=== PATIENT | female | born 1990 | race Caucasian/White ===

== ENCOUNTER 2018-02-06 01:14 | Inpatient (IN) | payer BC ==
[~2018-02-06] VITALS: Ht 165.1 cm; Wt 119.5 kg
[2018-02-06] MEDS ORDERED: LACTATED RINGER'S 1000ML 1,000 ML IV PRN (02:07)
[2018-02-06] MEDS ORDERED: PRENTAB26 PO (02:10)
[2018-02-06 02:11] VITALS: Ht 165.1 cm; Wt 119.5 kg
[2018-02-06 03:00] LABS: HEMATOCRIT 37.8 % (37-47); HEMOGLOBIN 12.6 g/dL (12.0-16.0); MEAN CELL VOLUME 84.9 fL (80-100); MEAN CORPUSCULAR HEMOGLOBIN 28.3 pg (25-34); MEAN CORPUSCULAR HGB CONC 33.3 g/dl (32-36); MEAN PLATELET VOLUME 11.1 fL (7.4-10.4); PLATELET COUNT 183 K/uL (130-400); RED CELL DISTRIBUTION WIDTH CV 14.3 % (11.5-14.5); RED CELL DISTRIBUTION WIDTH SD 44.6 fL (36.4-46.3); WHITE BLOOD COUNT 11.99 K/uL (4.8-10.8)
[2018-02-06] MEDS ORDERED: MISOPROSTOLTAB 50 MCG TAB PO ONE ×2 (10:00→14:45)
--- NOTE | 2018-02-06 10:03 | Progress Note ---
Progress Note Date of Service Feb 06, 2018. Progress Note Admit Note 27 F P0000 at 37.2 weeks with SROM last PM clear fluid not in labor. GBS is negative. Patient was ambulating during the night. No regular contractions. Cervix finger tip/50/-3/vertex. EFW 8.5 lbs. Will start Cytotec 50 mcg.
[2018-02-06] MEDS ORDERED: NURSING VERBAL MED ORDER ONE (14:30)
[2018-02-06] MEDS ORDERED: LACTATED RINGER'S 1000ML 500 ML IV PRN (20:19)
[2018-02-06] MEDS ORDERED: OXYTOCIN 30 UNITS/500ML NSS IV PRN (20:30)
[2018-02-06] MEDS: LACTATED RINGER'S 1000ML 1,000 ML IV SCH (20:56)
[2018-02-07] VITALS (15 sets, daily range): BP systolic 116–137; BP diastolic 72–82; PULSE 80–88; TEMP 36.5–37; O2SAT 95–100
[2018-02-07] MEDS: LACTATED RINGER'S 1000ML 1,000 ML IV SCH ×2 (04:26→08:01)
[2018-02-07] MEDS ORDERED: LACTATED RINGER'S 1000ML 1,000 ML IV SCH ×2 (06:58→09:54)
--- NOTE | 2018-02-07 07:01 | Progress Note ---
Progress Note Date of Service Feb 07, 2018. Progress Note Cervix unchanged at /-3. T Cat 1. Will set up for for arrest of progress of labor in latent phase.
--- NOTE | 2018-02-07 07:17 | HISTORY & PHYSICAL EXAMINATION ---
DATE OF ADMISSION: 02/07/2018 REASON FOR ADMISSION: Spontaneous rupture of membranes at term. HISTORY OF PRESENT ILLNESS: The patient is a 27-year-old female at 37 weeks and 3 days, who presents with spontaneous rupture of membranes last night. She progressed to 1 cm, 70%, -3 and has not had any further progress despite Pitocin. She has been ruptured greater than 24 hours. A decision to perform a was based on the fact that the patient has not made any progress, so arrest of progress in the latent phase. heart tones are category 1. GBS is negative. MEDS: PNV ALLERGIES: NKA SOCIAL HISTORY: non-smoker, no alcohol or drug use FAMILY HISTORY: non-contributory PHYSICAL EXAMINATION: HEENT: Within normal limits. LUNGS: Clear to auscultation. COR: Regular rate and rhythm. ABDOMEN: Soft, gravid. heart tone category 1. Estimated weight probably greater than 8 pounds. NEURO: grossly intact, AOX3 ASSESSMENT: Term with arrest of progress in labor. PLAN: Primary section, antibiotics preop. MTDD
[2018-02-07] MEDS ORDERED: CITRIC ACID/SODIUM CITRATE 15 ML UDC ONE (07:52)
[2018-02-07] MEDS ORDERED: CEFAZOLIN IV 3,000 MG in SYRINGE 0 ML IV SCH (08:00)
[2018-02-07] MEDS ORDERED: MoRPHine SULFATE PF 1 MG/ML 10 ML AMP/VIAL ONE (08:50)
[2018-02-07] MEDS ORDERED: FENTANYL CITRATE INJ 50 MCG/1 ML 2 ML VIAL ONE (08:50)
[2018-02-07] MEDS ORDERED: KETOROLAC TROMETHAMINE 30 MG/ML VIAL ONE (09:39)
[2018-02-07] MEDS ORDERED: PHENYLEPHRINE 100MCG/ML 5ML SYR ONE (09:39)
[2018-02-07] MEDS ORDERED: ONDANSETRON INJ 2 MG/ML 2 ML VIAL ONE (09:39)
[2018-02-07] MEDS ORDERED: OXYTOCIN INJ 10 UNITS/ML VIAL ONE (09:39)
--- NOTE | 2018-02-07 09:52 | [facility] Post Operative Brief Note ---
Immediate Operative Summary Operative Date Feb 07, 2018. Pre-Operative Diagnosis Arrest of progress latent phase of labor after spontaneous rupture of membranes at 37 weeks Post-Operative Diagnosis same with occiput posterior presentation of living male child Procedure(s) Performed Primary Low Transverse Caesarean Section Surgeon Dr. Waldo Olivares Sheet Catcher Surgeon(s) Dr. Peng Lazaro Estimated Blood Loss 500 Findings See Below LIVE MALE APGARS PENDING WEIGHT PENDING OCCIPUT TRANSVERSE POSITION Fluids (cc crystalloids) 1500 Ml Specimens a. placenta- exam b. cord blood specimen Drains None Flynn CLEAR Anesthesia Type Spinal Complication(s) none Disposition Accompanied Pt To Recover: yes Disposition: L&D
[2018-02-07] MEDS ORDERED: OXYTOCIN INJ 30 UNITS in LACTATED RINGER'S 1000ML 1,000 ML IV SCH (09:54)
[2018-02-07] MEDS ORDERED: LANOLIN OINT EXT PRN (10:00)
[2018-02-07] MEDS ORDERED: SENNA 8.6 MG TAB PO PRN (10:00)
[2018-02-07] MEDS ORDERED: SUPERCREAM 0.870 % 15GM JAR EXT PRN (10:00)
[2018-02-07] MEDS ORDERED: MAGNESIUM HYDROXIDE SUSP 30 ML UDC PO PRN (10:00)
[2018-02-07] MEDS ORDERED: DIPHTHERIA/TETANUS/PERTUSSIS 0.5 ML SYR/VIAL IM. ONE (10:00)
[2018-02-07] MEDS ORDERED: HYDROCORTISONE ACETATE 25 MG SUPP PR PRN (10:00)
[2018-02-07] MEDS ORDERED: MEASLES, MUMPS & RUBELLA VIRUS VIAL SQ. ONE (10:00)
[2018-02-07] MEDS ORDERED: BENZOCAINE 20% AER SPR 82.5 GM CAN EXT PRN (10:00)
[2018-02-07] MEDS ORDERED: LACTATED RINGER'S 1000ML 500 ML IV PRN (10:11)
[2018-02-07] MEDS ORDERED: SODIUM CHLORIDE 0.9% 1000ML 1,000 ML IV PRN (10:11)
[2018-02-07] MEDS ORDERED: NALOXONE HCL INJ 1 MG in SODIUM CHLORIDE 0.9% 1000ML 1,000 ML IV PRN (10:11)
[2018-02-07] MEDS ORDERED: NALOXONE HCL INJ 0.08 MG in SYRINGE 1.8 ML IV PRN (10:11)
[2018-02-07] MEDS ORDERED: PROMETHAZINE HCL INJ 6.25 MG in SODIUM CHLORIDE 0.9% 50ML 50 ML IV PRN (10:15)
[2018-02-07] MEDS ORDERED: MoRPHine SULFATE PF 1 MG/ML 10 ML AMP/VIAL EPI PRN (10:15)
[2018-02-07] MEDS ORDERED: EpHEDrine SULFATE INJ 50 MG/ML AMP IV PRN (10:15)
[2018-02-07] MEDS ORDERED: NALOXONE HCL 0.4 MG/1 ML VIAL/CARP IV PRN (10:15)
[2018-02-07] MEDS ORDERED: KETOROLAC TROMETHAMINE 30 MG/ML VIAL IV. PRN (10:15)
[2018-02-07] MEDS ORDERED: MoRPHine SULFATE 2 MG/ML CARP IV PRN (10:15)
[2018-02-07] MEDS ORDERED: DiphenhydrAMINE HCL 50 MG/ML VIAL IV PRN ×2 (10:15)
[2018-02-07] MEDS ORDERED: MEPERIDINE HCL 25 MG/ML CARP IV PRN (10:15)
[2018-02-07] MEDS ORDERED: NALBUPHINE HCL INJ 10 MG/ML AMP IV PRN (10:15)
[2018-02-07] MEDS ORDERED: NO NARCOTICS OR SEDATIVES SCH (10:15)
[2018-02-07] MEDS ORDERED: ONDANSETRON INJ 2 MG/ML 2 ML VIAL IV PRN (10:15)
--- NOTE | 2018-02-07 10:32 | OPERATIVE REPORT ---
DATE OF OPERATION: 02/07/2018 PREOPERATIVE DIAGNOSIS: Arrest of progress in latent phase with spontaneous rupture of membranes at 37 weeks. POSTOPERATIVE DIAGNOSIS: Same. PROCEDURE: Primary low transverse section. SURGEON: Dr. Olivares. SUPERVISOR PIPE FINISHING: Dr. Lazaro. ESTIMATED BLOOD LOSS: 500 mL. FINDINGS: Live male, Apgars 8 and 9, weight 6 pounds 15-1/2 ounces, occiput transverse position. FLUIDS: 1500 mL Norris clear. ANESTHESIA: Spinal anesthesia. COMPLICATIONS: None. The patient to recovery room in stable condition. CLINICAL HISTORY: The patient is a 27-year-old female, 37 weeks' , who presents with spontaneous rupture of membranes, not in active labor. The patient was given Cytotec twice and Pitocin, progressed to 1 cm without any further progress. A decision was made to do a primary section for latent phase arrest at 37 weeks with prolonged rupture of membranes. DESCRIPTION OF PROCEDURE: Under satisfactory spinal anesthesia, the patient was prepped and draped in the usual sterile fashion. Timeout was called prior to the start of the procedure. Antibiotics were given preop. A Pfannenstiel incision was made on the skin, entering into the abdominal cavity in successive layers without difficulty. Upon entering into the abdominal cavity, the Johann retractor was placed. A bladder flap was made in the usual manner, dissecting down the vesicouterine peritoneum over the bladder. A low segment transverse incision over the lower uterine segment was made. The incision was widened in the transverse plane using bandage scissors. The was then delivered as an occiput transverse lie and noted to be wedged in the pelvis. The cord was doubly clamped and cut. Baby was handed to doctor of medicine. Apgars were 8 and 9. weight 6 pounds 15-1/2 ounces. Cord blood was obtained. Placenta delivered spontaneously and intact. Uterus was then exteriorized. Ring forceps were then placed on both margins and in the inferior margin. Uterus was closed in double layer closure with 0 Vicryl suture in an interlocking fashion followed by an imbricating suture. The contents of the abdominal and pelvic cavity were then irrigated to clear. The Johann retractor was removed. The uterus was placed in the normal anatomical position. No active bleeding was noted. Lower uterine incision was inspected. The fascia was then reapproximated from both ends using 0 Vicryl suture in a continuous interlocking fashion. Subcuticular space was irrigated. Bleeders were cauterized. The subcuticular layer was closed with 2-0 plain suture followed by natalie for the skin. Clear urine was noted from the Norris, approximately 200 mL. EBL 500 mL. Final sponge, needle and instrument counts were found to be correct. Total fluids 1500 mL. The patient was placed supine on a stretcher and taken to recovery room in stable condition. I attest to the content of the Intraoperative Record and any orders documented therein. Any exception s are noted below.
--- NOTE | 2018-02-07 11:26 | Anesthesiology Progress Note ---
Anesthesia Post Op Note Date & Time Feb 07, 2018 at 11:26 Notes Mental Status: alert / awake / arousable, participated in evaluation Pt Amnestic to Procedure: No Nausea / Vomiting: adequately controlled Pain: adequately controlled Airway Patency, RR, SpO2: stable & adequate BP & HR: stable & adequate Hydration State: stable & adequate Neuraxial Anesthesia: was administered, sensory block is resolving Anesthetic Complications: no major complications apparent
[2018-02-07] MEDS: SIMETHICONE 80 MG CHEW PO SCH ×3 (12:53→19:26)
[2018-02-07] MEDS: DOCUSATE SODIUM 100 MG CAP PO SCH (19:26)
[2018-02-08] VITALS (7 sets, daily range): BP systolic 122–126; BP diastolic 63–78; PULSE 83–103; TEMP 36.7–36.9; O2SAT 97–100
[2018-02-08] MEDS ORDERED: DC INTRASPINAL MORPHINE SCH (02:00)
[2018-02-08] MEDS ORDERED: KETOROLAC TROMETHAMINE 30 MG/ML VIAL IV. PRN (02:00)
[2018-02-08] MEDS ORDERED: DiphenhydrAMINE HCL 50 MG/ML VIAL IV PRN (02:00)
[2018-02-08] MEDS ORDERED: OXYCODONE/ACETAMINOPHEN 5-325 TAB PO PRN (02:00)
[2018-02-08] MEDS ORDERED: ONDANSETRON INJ 2 MG/ML 2 ML VIAL IV PRN (02:00)
[2018-02-08] MEDS ORDERED: MEPERIDINE HCL 50 MG/ML CARP IV PRN ×2 (02:00)
[2018-02-08] MEDS: IBUPROFEN 600 MG TAB PO PRN ×5 (03:32→23:36)
[2018-02-08] MEDS: OXYCODONE/ACETAMINOPHEN 5-325 TAB PO PRN ×2 (03:32→16:59)
[2018-02-08 07:34] LABS: BASO % 0.1 %; BASO ABS # 0.01 K/uL (0-0.2); EOS % 0.7 %; EOS ABS # 0.08 K/uL (0-0.5); HEMATOCRIT 32.1 % (37-47); HEMOGLOBIN 10.9 g/dL (12.0-16.0); IG# 0.04 K/uL (0.00-0.02); LYMPH % 10.4 %; LYMPH ABS # 1.21 K/uL (1.2-3.4); MEAN CELL VOLUME 85.4 fL (80-100); MEAN PLATELET VOLUME 10.2 fL (7.4-10.4); MONO % 7.4 %; MONO ABS # 0.86 K/uL (0.11-0.59); NEUT % 81.1 %; NEUT ABS # 9.48 K/uL (1.4-6.5); PLATELET COUNT 147 K/uL (130-400); RED CELL DISTRIBUTION WIDTH SD 46.5 fL (36.4-46.3); WHITE BLOOD COUNT 11.68 K/uL (4.8-10.8)
[2018-02-08] MEDS: DOCUSATE SODIUM 100 MG CAP PO SCH ×2 (07:44→20:00)
[2018-02-08] MEDS: SIMETHICONE 80 MG CHEW PO SCH ×5 (07:44→23:35)
[2018-02-08] MEDS: PRENATAL VITAMIN TAB PO SCH (07:44)
--- NOTE | 2018-02-08 08:46 | Surgery Progress Note ---
Surgery Progress Note Date of Service Feb 08, 2018. Subjective Post OP Day: 1 + feeling well, + ambulating, + flatus, + pain controlled, + diet Objective Vital Signs: Date Time Temp Pulse Resp B/P (MAP) Pulse Ox O2 Delivery O2 Flow Rate FiO2 02/08/18 07:40 36.8 83 18 122/63 (82) Room Air 02/08/18 03:35 36.7 103 20 124/71 (88) 99 Room Air 02/08/18 02:00 20 99 02/08/18 01:00 18 98 02/08/18 00:00 18 100 02/07/18 23:40 36.8 88 20 116/74 (88) 98 Room Air 02/07/18 23:40 20 98 02/07/18 23:40 98 Room Air 02/07/18 23:00 18 99 02/07/18 22:00 16 99 02/07/18 21:00 16 100 02/07/18 20:00 18 100 02/07/18 19:30 18 100 02/07/18 19:30 37.0 86 18 122/81 (95) 100 Room Air 02/07/18 19:00 18 100 02/07/18 18:00 18 99 02/07/18 17:00 18 99 02/07/18 16:00 18 100 02/07/18 16:00 100 Room Air 02/07/18 16:00 36.7 85 16 137/82 (100) 100 Room Air 02/07/18 15:00 18 100 02/07/18 14:00 18 100 02/07/18 13:40 36.5 80 18 117/79 (92) 95 Room Air 02/07/18 13:00 16 98 02/07/18 12:40 100 Room Air 02/07/18 12:40 100 Room Air 02/07/18 12:40 80 16 125/72 (89) 98 Room Air Abdomen: non tender, non distended, soft Incision(s): clean, dry, intact Extremities: non-tender, normal inspection, no pedal edema Laboratory Results: Results Past 24 Hours Test 02/08/18 07:04 Range/Units White Blood Count 11.68 4.8-10.8 K/uL Red Blood Count 3.76 4.2-5.4 M/uL Hemoglobin 10.9 12.0-16.0 g/dL Hematocrit 32.1 37-47 % Mean Corpuscular Volume 85.4 80-100 fL Mean Corpuscular Hemoglobin 29.0 25-34 pg Mean Corpuscular Hemoglobin Concent 34.0 32-36 g/dl Platelet Count 147 130-400 K/uL Mean Platelet Volume 10.2 7.4-10.4 fL Neutrophils (%) (Auto) 81.1 % Lymphocytes (%) (Auto) 10.4 % Monocytes (%) (Auto) 7.4 % Eosinophils (%) (Auto) 0.7 % Basophils (%) (Auto) 0.1 % Neutrophils # (Auto) 9.48 1.4-6.5 K/uL Lymphocytes # (Auto) 1.21 1.2-3.4 K/uL Monocytes # (Auto) 0.86 0.11-0.59 K/uL Eosinophils # (Auto) 0.08 0-0.5 K/uL Basophils # (Auto) 0.01 0-0.2 K/uL RDW Standard Deviation 46.5 36.4-46.3 fL RDW Coefficient of Variation 15.0 11.5-14.5 % Immature Granulocyte % (Auto) 0.3 % Immature Granulocyte # (Auto) 0.04 0.00-0.02 K/uL Assessment & Plan regular diet POD#1 advance care and diet
[2018-02-08] MEDS ORDERED: BISACODYL 5 MG TABEC PO ONE (22:00)
[2018-02-09] MEDS: IBUPROFEN 600 MG TAB PO PRN ×2 (04:26→08:29)
[2018-02-09] MEDS: PRENATAL VITAMIN TAB PO SCH (08:28)
[2018-02-09] MEDS: DOCUSATE SODIUM 100 MG CAP PO SCH (08:29)
[2018-02-09] MEDS: SIMETHICONE 80 MG CHEW PO SCH (08:29)
[2018-02-09 08:40] VITALS: BP 129/86; PULSE 104; TEMP 36.9; O2SAT 98
--- NOTE | 2018-02-09 09:09 | Surgery Progress Note ---
Surgery Progress Note Date of Service Feb 09, 2018. Subjective Post OP Day: 2 + feeling well, + ambulating, + bowel movement, + flatus, + pain controlled, No complaints, No chest pain, No SOB, No using [employer], No nausea, No vomiting, No diet (Tolerating Po food and meds) Objective Vital Signs: Date Time Temp Pulse Resp B/P (MAP) Pulse Ox O2 Delivery O2 Flow Rate FiO2 02/08/18 23:40 97 Room Air 02/08/18 23:40 36.8 100 18 126/78 (94) 97 Room Air 02/08/18 17:00 36.9 93 18 123/78 (93) Room Air 02/08/18 17:00 98 Room Air General Appearance: WD/WN, no apparent distress Head: normocephalic, atraumatic Neck: supple, no adenopathy, thyroid normal, no JVD, no carotid bruits, trachea midline Respiratory/Chest: chest non-tender, lungs clear, normal breath sounds, no respiratory distress, no accessory muscle use Cardiovascular: regular rate, rhythm, no edema, no gallop, no JVD, no murmur Abdomen: normal bowel sounds, non tender, non distended, soft, no organomegaly , no pulsatile mass Incision(s): clean, dry, intact, no erythema, no drainage Extremities: normal range of motion, non-tender, normal inspection, no pedal edema, no calf tenderness, normal capillary refill, pelvis stable Assessment & Plan c/sec Day #3 pt doing well pt wishes to go home D/c with instructions
[2018-02-09] MEDS ORDERED: MTR600X PO (09:10)
[2018-02-09] MEDS ORDERED: OXYC-57 PO (09:10)
--- NOTE | 2018-02-09 09:10 | Discharge Instructions ---
Discharge Instructions Date of Service Feb 09, 2018. Admission Reason for Admission: LABOR Discharge Discharge Diagnosis / Problem: postop Discharge Goals Goal(s): Routine recovery after Activity Recommendations Activity Limitations: as noted below ACTIVITY RECOMMENDATIONS: * Gradual return to full activity over the next 2-3 weeks. * No lifting - nothing heavier than baby over the next 2-3 weeks. * Do not engage in vigorous exercise, sexual activity or sports until cleared by your physician. * Do not drive or operate any motorized equipment until cleared by your physician. * You may shower/bathe daily. BREAST CARE: If you are not breast feeding: * Wear a supportive bra 24 hours a day for one to two weeks. * Avoid stimulating your breasts and nipples as much as possible during the first few weeks after delivery. * When taking a shower, have the warm water hit your back, not breasts. * When your breasts feel full, apply ice packs. Usually three to four times a day helps ease the discomfort. * Take a mild pain medication (Tylenol/Motrin) when you are uncomfortable. If breast feeding: * Use breast milk to lubricate nipples. Lansinoh cream may be used for sore nipples. You do not need to remove cream prior to breast feeding. If using a different brand of cream, check the label for directions regarding removal of cream prior to nursing. * Wear a supportive bra. * If having problems with breasts or breast feeding, call a client experience consultant or your health care provider. OVER THE COUNTER MEDICATION: * For discomfort or pain, you may use Acetaminophen (Tylenol), Ibuprofen (Advil ), or Naproxen (Aleve) following the package directions. * For constipation you may use Colace following the package directions. SPECIAL CARE INSTRUCTIONS: When you are discharged from the hospital, it is important for you to follow the instructions listed below: * During the first week at home, you should be able to care for yourself and your baby. In addition, the usual light household activities are encouraged. * Limit your activities to the way you feel. Do not try to clean the house or move furniture. Be sensible. * If you actively engage in sports and have done so up until the time of your delivery, you may resume these activities as soon as you feel able. This may take up to one month or even longer. Use good judgment. * Continue to take your vitamins for at least six weeks after the of your baby. * Your diet need not be limited unless you were on a special diet before your delivery. Breast-feeding mothers need around 2500 calories per day and at least 64-80 ounces of fluid per day (8 to 10 glasses). * You should eat foods from the four major food groups. Crash diets or fad diets are to be avoided. Eating lean meats, fresh fruits and vegetables, low-fat dairy products, high fiber foods and a regular exercise program, will help you get back to your pre- weight without putting your health at risk. * Constipation is sometimes a problem after delivery. Take a mild laxative as needed. If breast feeding, Milk of Magnesia is acceptable to use. You may use a suppository or Fleets enema if no episiotomy. * A daily shower or tub bath is suggested. Be sure to thoroughly and gently dry the perineum. * A bloody vaginal discharge will usually continue until around four weeks post . A small amount of bleeding may continue for as long as six weeks. Vaginal discharge changes from the bright red bleeding after delivery to pink then brownish and finally yellowish-pink before becoming white and disappearing. * Bleeding may increase with activity. Your first period may come in 4-8 weeks. If you are breast feeding, your period may be delayed even longer. * [place] (sex) can begin whenever both you and your partner feel comfortable and do not have any form of genital infection. It is recommended that you wait at least six weeks for internal and external healing to occur. If you have questions, please talk to your health care practitioner. A condom should be used to prevent infection and . * Foreplay, gentle intercourse and lubrication is very important the first several times to prevent pain. A water-based lubricant such as K-Y jelly or Astroglide may be used. * Tampons and/or Douching should be avoided until after six weeks check-up. * If you have RH negative blood and your baby is RH positive, you will receive RHOGAM by injection prior to discharge. The nurse will give you a card to keep with you that has the date and place that you received RHOGAM after delivery. * During your care, you had a Rubella screen done to check for the presence of rubella antibodies in your blood. If your test was negative, you will receive a Rubella vaccine prior to discharge. This vaccine may cause a fever, soreness at the injection site and flu-like symptoms. If these symptoms persist, notify your health care practitioner. is not advised for three months after a Rubella vaccine. * Verbalizes understanding of car seat law as reviewed with patient nursing. * Car Seat hand-out given and reviewed with patient by nursing. * Shaken baby information reviewed with patient by nursing. Call you doctor if: * Heavy bleeding (saturating several pads an hour) or passing clots the size of your fist. * A fever >101 degrees F (38.3 degrees C) on two occasions four hours apart and /or chills. * Unusual pain in the pelvic or vaginal areas. Pain should improve each day . * Call the doctor for any increased redness, drainage or swelling around the incision and any pain unrelieved by prescribed pain medication. * Any signs or symptoms of phlebitis (possible blood clots forming in the veins ): leg pain, warm, red or swollen area on leg. * "Baby Blues" lasting longer than two weeks. If you have any questions or concerns, call your health care practitioner at . FOLLOW-UP VISIT: * Incision check (staple removal) in 1 week. Please call doctor's office at to set up appointment. * Please call the office at to schedule a 6 week examination. It is important you keep this appointment. * It is important for you to make arrangements for either yearly or twice yearly check-ups thereafter. . Current Hospital Diet Patient's current hospital diet: Regular OB Diet Discharge Diet Recommended Diet: Regular Diet Procedures Procedures Performed: Primary Low Transverse Caesarean Section Pending Studies Studies pending at discharge: no Medical Emergencies . Who to Call and When: Medical Emergencies: If at any time you feel your situation is an emergency, please call [phone] immediately. . Non-Emergent Contact Non-Emergency issues call your: Specialist . . "Provider Documentation" section prepared by Enrique Briggs. .
[2018-02-09] MEDS ORDERED: BISACODYL 10 MG SUPP PR PRN (10:00)
[2018-02-09 12:28] VITALS: BP_DIAS 86; PULSE 104; TEMP 36.9
== END 2018-02-09 12:30 | disposition home or self-care (01) | DRG 766 ==
LOC: C.LD 01:14 → C.OPB 01:14 → C.LD 02:09 → C.OPB 02:12 → C.OBG 02-07 12:52
PROVIDERS: ADMIT Obstetrics & Gynecology; ATTEND Obstetrics & Gynecology
PROC: 10D00Z1 Extraction of Products of Conception, Low, Open Approach (ICD-10-PCS; principal; 2018-02-07 07:37)
DX: O62.0 Primary inadequate contractions (principal); O42.12 Full-term premature rupture of membranes, onset of labor more than 24 hours following rupture; Z3A.37 37 weeks gestation of pregnancy; Z37.0 Single live birth

== ENCOUNTER 2021-05-19 14:46 | Inpatient (IN) ==
[2021-05-19] MEDS: LACTATED RINGER'S 1,000 ML IV PRN ×2 (15:15→16:52)
[2021-05-19] MEDS ORDERED: OXYTOCIN 30 UNITS/500 ML BAG IV PRN ×2 (15:30→20:35)
[2021-05-19 15:58] LABS: Hematocrit (blood only) 38.5 % (37-47); Hemoglobin 12.8 g/dL (12.0-16.0); Mean Corpuscular Hemoglobin 29.2 pg (25-34); Mean Corpuscular Hgb Conc 33.2 g/dL (32-36); Mean Corpuscular Volume 87.9 fL (80-100); Mean Platelet Volume 10.9 fL (7.4-10.4); Platelet Count 183 K/uL (130-400); RDW Coefficient of Variation 14.2 % (11.5-14.5); RDW Standard Deviation 46.2 fL (36.4-46.3); Red Blood Count 4.38 M/uL (4.2-5.4); White Blood Count 9.34 K/uL (4.8-10.8)
[2021-05-19] MEDS ORDERED: BUPIVACAINE 0.25% 30 ML VIAL ONE (16:03)
[2021-05-19] MEDS ORDERED: SODIUM CHLORIDE 0.9% INJ 10 ML VIAL ONE (16:03)
[2021-05-19] MEDS ORDERED: fentaNYL citrate 100 MCG/2 ML VIAL ONE (16:03)
[2021-05-19] MEDS ORDERED: ePHEDrine sulfate 50 MG/ML AMP ONE (16:03)
[2021-05-19] MEDS ORDERED: fentaNYL 2MCG/ML ROPIVACAINE 1.25MG/ML 100 ML BAG EPI ONE (16:04)
[2021-05-19] MEDS ORDERED: NALOXONE HCL 0.4 MG/1 ML VIAL/CARP IV PRN (16:06)
[2021-05-19] MEDS ORDERED: fentaNYL 2MCG/ML ROPIVACAINE 1.25MG/ML 100 ML BAG EPI PRN (16:06)
[2021-05-19] MEDS ORDERED: ONDANSETRON INJ 2 MG/ML 2 ML VIAL IV PRN (16:06)
[2021-05-19] MEDS ORDERED: NALOXONE HCL 1 MG in SODIUM CHLORIDE 0.9% 1000ML 1,000 ML IV PRN (16:06)
[2021-05-19] MEDS ORDERED: NALBUPHINE HCL INJ 10 MG/ML AMP IV PRN (16:06)
[2021-05-19] MEDS ORDERED: ePHEDrine sulfate 50 MG/ML AMP IV PRN (16:06)
[2021-05-19] MEDS ORDERED: diphenhydrAMINE 50 MG/ML VIAL IV PRN (16:06)
--- NOTE | 2021-05-19 16:09 | Anesthesiology Consultation ---
Date of Service May 19, 2021 Assessment & Plan (1) Encounter for pre-operative examination: Chart Review Chart Review: Patient NOT seen in Pre Admission Testing and Acceptable Risk for Labor Epidural Consults Requested none History Height/Weight Height: 5 ft 6 in Weight: 122.924 kg Allergies Allergy/AdvReac Type Severity Reaction Status Date / Time No Known Allergies Allergy Verified 05/19/21 15:41 Medications Home Medications Medication Instructions Recorded Confirmed Last Taken escitalopram oxalate 20 mg tablet 20 mg PO DAILY 05/18/21 05/19/21 05/17/21 (Lexapro) vits no.124-ferrous fum 1 tab PO DAILY 05/18/21 05/19/21 05/17/21 27 mg iron-folic acid 800 mcg tablet ( Vitamin) Active Medications Generic Name Dose Route Start Last Admin Trade Name Freq PRN Reason Stop Dose Admin Lactated Ringer's 1,000 mls @ 125 mls/hr 05/19/21 15:30 05/19/21 16:32 Lr IV 05/21/21 15:29 999 mls/hr .Q8H PRN Infusion L&D Protocol Protocol Past Medical History Medical History Anxiety Depression Obesity (BMI 35.0-39.9 without comorbidity) Exercise / Class Metabolic Activity II 4-5 Yardwork/Stairs/Walk up hill Past Surgical History Surgical History H/O section Past Anesthesia History No Hx of Anesthesia Complications and No Family Hx of Anesthesia Complications History of PONV No Hx of PONV and No Hx of Motion Sickness Social History Smoking Status: Never smoker Do You Dip or Chew Tobacco: No Hx Alcohol Use: No Hx Substance Use: No substance use type: does not use Physical Exam Vital Signs Last Vital Signs Temp 36.6 C 05/19/21 14:59 Pulse 85 05/19/21 16:38 Resp 20 05/19/21 14:59 BP 144/84 H 05/19/21 14:59 Pulse Ox 100 05/19/21 16:38 Testing Laboratory Results 05/19/21 15:47
--- NOTE | 2021-05-19 16:44 | Ultrasound Report ---
US OB limited CLINICAL HISTORY: size >>dates please do estimated weight COMPARISON STUDY: None. FINDINGS: Transabdominal scanning of the fetus was performed with procurement representative images submitted. A focal anatomic survey was not performed. The fetus is in a cephalic position with a heart rate of 151 BPM. Limited images suggests oligohydramnios. The curative ultrasound age based on the biparie sarah diameter, head circumference, abdominal circumference, and femur length is approximately 38 weeks and 4 days +/- 1 week. Estimated weight is 8 pounds and 8 ounces +/- 1 pound 4 ounces. IMPRESSION: 1. A single viable 38 week and 4 day intrauterine gestation with a heart rate of 151 BPM.. 2. Estimated weight is 8 pounds and 8 ounces +/- 1 pound 4 ounces. 3. Limited images suggest the possibility of oligohydramnios. ACT 112: Negative or not required by law. Electronically signed by: Shai Pope M.D. 05/19/2021 4:43 PM
--- NOTE | 2021-05-19 21:42 | Progress Note ---
Date of Service May 19, 2021 Assessment & Plan Admission and Anticipated Discharge Date Admission Date: May 19, 2021 Subjective Pt doing well VE: 9/100/-1 AROM : Clear fluid Ctx; Minimal Pitocin augmentation scalp placed Results & Data ([facility]) Vital Signs (Past 12 Hours) Vital Signs Temp Pulse Resp BP Pulse Ox 05/19/21 21:35 67 121/67 05/19/21 21:33 68 99 05/19/21 21:28 71 99 05/19/21 21:23 79 97 05/19/21 21:20 69 125/71 05/19/21 21:18 76 99 05/19/21 21:13 73 98 05/19/21 21:08 87 99 05/19/21 21:05 74 131/76 05/19/21 21:03 76 99 05/19/21 21:00 18 05/19/21 20:58 71 98 05/19/21 20:53 71 99 05/19/21 20:50 73 123/69 05/19/21 20:48 71 100 05/19/21 20:43 69 98 05/19/21 20:38 68 99 05/19/21 20:35 71 122/72 05/19/21 20:33 69 99 05/19/21 20:30 18 05/19/21 20:28 74 99 05/19/21 20:23 70 99 05/19/21 20:20 73 119/68 05/19/21 20:18 71 99 05/19/21 20:13 74 99 05/19/21 20:08 73 98 05/19/21 20:05 82 118/69 05/19/21 20:03 75 98 05/19/21 19:58 72 98 05/19/21 19:53 73 98 05/19/21 19:50 78 125/72 05/19/21 19:48 79 99 05/19/21 19:43 75 99 05/19/21 19:38 72 99 05/19/21 19:35 71 142/65 H 05/19/21 19:33 75 98 05/19/21 19:30 18 05/19/21 19:28 78 99 05/19/21 19:23 73 99 05/19/21 19:21 75 145/87 H 05/19/21 19:18 75 98 05/19/21 19:15 37.1 C 18 05/19/21 19:13 77 98 05/19/21 19:08 86 97 05/19/21 19:06 83 133/87 05/19/21 19:03 77 99 05/19/21 18:58 75 99 05/19/21 18:53 77 99 05/19/21 18:50 73 130/73 05/19/21 18:48 73 99 05/19/21 18:43 74 98 05/19/21 18:38 76 100 05/19/21 18:36 74 129/59 L 05/19/21 18:33 78 99 05/19/21 18:28 82 99 05/19/21 18:23 88 157/65 H 99 05/19/21 18:18 77 98 05/19/21 18:13 76 98 05/19/21 18:08 76 99 05/19/21 18:07 78 114/55 L 05/19/21 18:03 76 97 05/19/21 17:58 79 97 05/19/21 17:53 82 98 05/19/21 17:50 80 106/55 L 05/19/21 17:48 79 98 05/19/21 17:43 75 99 05/19/21 17:38 88 98 05/19/21 17:33 82 98 05/19/21 17:31 82 16 109/57 L 05/19/21 17:28 86 98 05/19/21 17:26 77 110/52 L 05/19/21 17:24 88 91 05/19/21 17:23 82 98 05/19/21 17:20 80 119/58 L 05/19/21 17:18 87 99 05/19/21 17:15 77 127/67 05/19/21 17:13 73 98 05/19/21 17:10 78 114/55 L 05/19/21 17:08 84 97 05/19/21 17:05 76 16 108/59 L 05/19/21 17:03 77 98 05/19/21 17:00 79 109/53 L 05/19/21 16:58 78 98 05/19/21 16:54 77 121/59 L 05/19/21 16:53 80 97 05/19/21 16:52 80 122/60 05/19/21 16:50 75 127/63 05/19/21 16:48 79 126/60 98 05/19/21 16:46 82 121/61 05/19/21 16:44 82 126/68 05/19/21 16:43 84 100 05/19/21 16:42 80 123/70 05/19/21 16:40 88 122/68 05/19/21 16:38 85 100 05/19/21 16:33 90 99 05/19/21 14:59 36.6 C 88 20 144/84 H 05/19/21 14:55 88 144/84 H
[2021-05-19] MEDS: ACETAMINOPHEN 500 MG TAB PO PRN (23:05)
[2021-05-20] MEDS: LACTATED RINGER'S 1,000 ML IV PRN (01:05)
[2021-05-20] MEDS: ACETAMINOPHEN 500 MG TAB PO PRN (01:14)
--- NOTE | 2021-05-20 01:14 | Progress Note ---
Date of Service May 20, 2021 Assessment & Plan Admission and Anticipated Discharge Date Admission Date: May 19, 2021 Subjective Pt doing well VE; Rim of cervix remains. deirdre ble to push past rim will allow passive descent revaluate in 1 hr Results & Data ([facility]) Vital Signs (Past 12 Hours) Vital Signs Temp Pulse Resp BP Pulse Ox 05/20/21 01:08 92 H 97 05/20/21 01:03 92 H 98 05/20/21 00:58 110 H 91 05/20/21 00:57 105 H 90 05/20/21 00:53 82 100 05/20/21 00:50 76 137/65 05/20/21 00:48 84 97 05/20/21 00:43 76 97 05/20/21 00:38 78 99 05/20/21 00:36 74 122/60 05/20/21 00:35 77 133/70 05/20/21 00:33 71 96 05/20/21 00:30 18 05/20/21 00:28 76 97 05/20/21 00:23 73 97 05/20/21 00:21 72 126/68 05/20/21 00:18 70 97 05/20/21 00:13 71 97 05/20/21 00:08 72 98 05/20/21 00:05 74 125/64 05/20/21 00:03 72 99 05/20/21 00:00 36.8 C 18 05/19/21 23:58 81 99 05/19/21 23:55 97 H 93 05/19/21 23:53 84 98 05/19/21 23:50 82 131/78 05/19/21 23:48 82 98 05/19/21 23:43 81 98 05/19/21 23:38 81 99 05/19/21 23:36 79 136/83 05/19/21 23:33 79 97 05/19/21 23:30 18 05/19/21 23:28 74 98 05/19/21 23:23 80 98 05/19/21 23:20 82 129/74 05/19/21 23:18 84 100 05/19/21 23:13 88 99 05/19/21 23:08 104 H 96 05/19/21 23:05 82 131/75 05/19/21 23:03 72 99 05/19/21 23:00 18 05/19/21 22:58 70 98 05/19/21 22:53 74 99 05/19/21 22:50 71 135/79 05/19/21 22:48 75 99 05/19/21 22:43 81 100 05/19/21 22:38 89 97 05/19/21 22:36 85 93 05/19/21 22:35 75 131/70 05/19/21 22:33 77 99 05/19/21 22:30 18 05/19/21 22:28 75 99 05/19/21 22:23 82 99 05/19/21 22:21 75 134/69 05/19/21 22:18 86 98 05/19/21 22:13 78 99 05/19/21 22:08 75 97 05/19/21 22:05 74 132/72 05/19/21 22:03 72 97 05/19/21 22:00 18 05/19/21 21:58 72 98 05/19/21 21:53 75 98 05/19/21 21:50 70 126/70 05/19/21 21:48 71 98 05/19/21 21:43 69 98 05/19/21 21:38 73 98 05/19/21 21:35 67 121/67 05/19/21 21:33 68 99 05/19/21 21:30 18 05/19/21 21:28 71 99 05/19/21 21:23 79 97 05/19/21 21:20 69 125/71 05/19/21 21:18 76 99 05/19/21 21:13 73 98 05/19/21 21:08 87 99 05/19/21 21:05 74 131/76 05/19/21 21:03 76 99 05/19/21 21:00 37.0 C 18 05/19/21 20:58 71 98 05/19/21 20:53 71 99 05/19/21 20:50 73 123/69 05/19/21 20:48 71 100 05/19/21 20:43 69 98 05/19/21 20:38 68 99 05/19/21 20:35 71 122/72 05/19/21 20:33 69 99 05/19/21 20:30 18 05/19/21 20:28 74 99 05/19/21 20:23 70 99 05/19/21 20:20 73 119/68 05/19/21 20:18 71 99 05/19/21 20:13 74 99 05/19/21 20:08 73 98 05/19/21 20:05 82 118/69 05/19/21 20:03 75 98 05/19/21 19:58 72 98 05/19/21 19:53 73 98 05/19/21 19:50 78 125/72 05/19/21 19:48 79 99 05/19/21 19:43 75 99 05/19/21 19:38 72 99 05/19/21 19:35 71 142/65 H 05/19/21 19:33 75 98 05/19/21 19:30 18 05/19/21 19:28 78 99 05/19/21 19:23 73 99 05/19/21 19:21 75 145/87 H 05/19/21 19:18 75 98 05/19/21 19:15 37.1 C 18 05/19/21 19:13 77 98 05/19/21 19:08 86 97 05/19/21 19:06 83 133/87 05/19/21 19:03 77 99 05/19/21 18:58 75 99 05/19/21 18:53 77 99 05/19/21 18:50 73 130/73 05/19/21 18:48 73 99 05/19/21 18:43 74 98 05/19/21 18:38 76 100 05/19/21 18:36 74 129/59 L 05/19/21 18:33 78 99 05/19/21 18:28 82 99 05/19/21 18:23 88 157/65 H 99 05/19/21 18:18 77 98 05/19/21 18:13 76 98 05/19/21 18:08 76 99 05/19/21 18:07 78 114/55 L 05/19/21 18:03 76 97 05/19/21 17:58 79 97 05/19/21 17:53 82 98 05/19/21 17:50 80 106/55 L 05/19/21 17:48 79 98 05/19/21 17:43 75 99 05/19/21 17:38 88 98 05/19/21 17:33 82 98 05/19/21 17:31 82 16 109/57 L 05/19/21 17:28 86 98 05/19/21 17:26 77 110/52 L 05/19/21 17:24 88 91 05/19/21 17:23 82 98 05/19/21 17:20 80 119/58 L 05/19/21 17:18 87 99 05/19/21 17:15 77 127/67 05/19/21 17:13 73 98 05/19/21 17:10 78 114/55 L 05/19/21 17:08 84 97 05/19/21 17:05 76 16 108/59 L 05/19/21 17:03 77 98 05/19/21 17:00 79 109/53 L 05/19/21 16:58 78 98 05/19/21 16:54 77 121/59 L 05/19/21 16:53 80 97 05/19/21 16:52 80 122/60 05/19/21 16:50 75 127/63 05/19/21 16:48 79 126/60 98 05/19/21 16:46 82 121/61 05/19/21 16:44 82 126/68 05/19/21 16:43 84 100 05/19/21 16:42 80 123/70 05/19/21 16:40 88 122/68 05/19/21 16:38 85 100 05/19/21 16:33 90 99 05/19/21 14:59 36.6 C 88 20 144/84 H 05/19/21 14:55 88 144/84 H
--- NOTE | 2021-05-20 01:53 | History & Physical Bridge Note ---
Date of Service May 20, 2021 History & Physical Bridge Note I have examined the patient, reviewed the History & Physical and in the interval since the performance of the History & Physical I have noted the following changes of clinical significance: no changes noted
--- NOTE | 2021-05-20 01:53 | Progress Note ---
Date of Service May 20, 2021 Assessment & Plan Admission and Anticipated Discharge Date Admission Date: May 19, 2021 Subjective Pt doing well VE; Unchanged FHE; CAT1 discussed c/sec with pt pt agrees Risk and benefits discussed consent obtained wioll proceed to surgery Results & Data ([facility]) Vital Signs (Past 12 Hours) Vital Signs Temp Pulse Resp BP Pulse Ox 05/20/21 01:48 77 95 05/20/21 01:47 89 92 05/20/21 01:43 81 98 05/20/21 01:38 91 H 96 05/20/21 01:36 88 94 05/20/21 01:35 93 H 141/79 H 05/20/21 01:33 93 H 99 05/20/21 01:28 79 98 05/20/21 01:23 80 96 05/20/21 01:20 79 128/73 05/20/21 01:18 75 97 05/20/21 01:13 91 H 97 05/20/21 01:08 92 H 97 05/20/21 01:03 92 H 98 05/20/21 01:00 18 05/20/21 00:58 110 H 91 05/20/21 00:57 105 H 90 05/20/21 00:53 82 100 05/20/21 00:50 76 137/65 05/20/21 00:48 84 97 05/20/21 00:43 76 97 05/20/21 00:38 78 99 05/20/21 00:36 74 122/60 05/20/21 00:35 77 133/70 05/20/21 00:33 71 96 05/20/21 00:30 18 05/20/21 00:28 76 97 05/20/21 00:23 73 97 05/20/21 00:21 72 126/68 05/20/21 00:18 70 97 05/20/21 00:13 71 97 05/20/21 00:08 72 98 05/20/21 00:05 74 125/64 05/20/21 00:03 72 99 05/20/21 00:00 36.8 C 18 05/19/21 23:58 81 99 05/19/21 23:55 97 H 93 05/19/21 23:53 84 98 05/19/21 23:50 82 131/78 05/19/21 23:48 82 98 05/19/21 23:43 81 98 05/19/21 23:38 81 99 05/19/21 23:36 79 136/83 05/19/21 23:33 79 97 05/19/21 23:30 18 05/19/21 23:28 74 98 05/19/21 23:23 80 98 05/19/21 23:20 82 129/74 05/19/21 23:18 84 100 05/19/21 23:13 88 99 05/19/21 23:08 104 H 96 05/19/21 23:05 82 131/75 05/19/21 23:03 72 99 05/19/21 23:00 18 05/19/21 22:58 70 98 05/19/21 22:53 74 99 05/19/21 22:50 71 135/79 05/19/21 22:48 75 99 05/19/21 22:43 81 100 05/19/21 22:38 89 97 05/19/21 22:36 85 93 05/19/21 22:35 75 131/70 05/19/21 22:33 77 99 05/19/21 22:30 18 05/19/21 22:28 75 99 05/19/21 22:23 82 99 05/19/21 22:21 75 134/69 05/19/21 22:18 86 98 05/19/21 22:13 78 99 05/19/21 22:08 75 97 05/19/21 22:05 74 132/72 05/19/21 22:03 72 97 05/19/21 22:00 18 05/19/21 21:58 72 98 05/19/21 21:53 75 98 05/19/21 21:50 70 126/70 05/19/21 21:48 71 98 05/19/21 21:43 69 98 05/19/21 21:38 73 98 05/19/21 21:35 67 121/67 05/19/21 21:33 68 99 05/19/21 21:30 18 05/19/21 21:28 71 99 05/19/21 21:23 79 97 05/19/21 21:20 69 125/71 05/19/21 21:18 76 99 05/19/21 21:13 73 98 05/19/21 21:08 87 99 05/19/21 21:05 74 131/76 05/19/21 21:03 76 99 05/19/21 21:00 37.0 C 18 05/19/21 20:58 71 98 05/19/21 20:53 71 99 05/19/21 20:50 73 123/69 05/19/21 20:48 71 100 05/19/21 20:43 69 98 05/19/21 20:38 68 99 05/19/21 20:35 71 122/72 05/19/21 20:33 69 99 05/19/21 20:30 18 05/19/21 20:28 74 99 05/19/21 20:23 70 99 05/19/21 20:20 73 119/68 05/19/21 20:18 71 99 05/19/21 20:13 74 99 05/19/21 20:08 73 98 05/19/21 20:05 82 118/69 05/19/21 20:03 75 98 05/19/21 19:58 72 98 05/19/21 19:53 73 98 05/19/21 19:50 78 125/72 05/19/21 19:48 79 99 05/19/21 19:43 75 99 05/19/21 19:38 72 99 05/19/21 19:35 71 142/65 H 05/19/21 19:33 75 98 05/19/21 19:30 18 05/19/21 19:28 78 99 05/19/21 19:23 73 99 05/19/21 19:21 75 145/87 H 05/19/21 19:18 75 98 05/19/21 19:15 37.1 C 18 05/19/21 19:13 77 98 05/19/21 19:08 86 97 05/19/21 19:06 83 133/87 05/19/21 19:03 77 99 05/19/21 18:58 75 99 05/19/21 18:53 77 99 05/19/21 18:50 73 130/73 05/19/21 18:48 73 99 05/19/21 18:43 74 98 05/19/21 18:38 76 100 05/19/21 18:36 74 129/59 L 05/19/21 18:33 78 99 05/19/21 18:28 82 99 05/19/21 18:23 88 157/65 H 99 05/19/21 18:18 77 98 05/19/21 18:13 76 98 05/19/21 18:08 76 99 05/19/21 18:07 78 114/55 L 05/19/21 18:03 76 97 05/19/21 17:58 79 97 05/19/21 17:53 82 98 05/19/21 17:50 80 106/55 L 05/19/21 17:48 79 98 05/19/21 17:43 75 99 05/19/21 17:38 88 98 05/19/21 17:33 82 98 05/19/21 17:31 82 16 109/57 L 05/19/21 17:28 86 98 05/19/21 17:26 77 110/52 L 05/19/21 17:24 88 91 05/19/21 17:23 82 98 05/19/21 17:20 80 119/58 L 05/19/21 17:18 87 99 05/19/21 17:15 77 127/67 05/19/21 17:13 73 98 05/19/21 17:10 78 114/55 L 05/19/21 17:08 84 97 05/19/21 17:05 76 16 108/59 L 05/19/21 17:03 77 98 05/19/21 17:00 79 109/53 L 05/19/21 16:58 78 98 05/19/21 16:54 77 121/59 L 05/19/21 16:53 80 97 05/19/21 16:52 80 122/60 05/19/21 16:50 75 127/63 05/19/21 16:48 79 126/60 98 05/19/21 16:46 82 121/61 05/19/21 16:44 82 126/68 05/19/21 16:43 84 100 05/19/21 16:42 80 123/70 05/19/21 16:40 88 122/68 05/19/21 16:38 85 100 05/19/21 16:33 90 99 05/19/21 14:59 36.6 C 88 20 144/84 H 05/19/21 14:55 88 144/84 H
[2021-05-20] MEDS ORDERED: CITRIC ACID/SODIUM CITRATE 15 ML UDC PO STA (02:00)
[2021-05-20] MEDS ORDERED: LACTATED RINGER'S 1,000 ML IV SCH ×3 (02:00→04:15)
[2021-05-20] MEDS ORDERED: MoRPHine SULFATE PF 1 MG/ML 10 ML AMP/VIAL ONE (02:00)
[2021-05-20] MEDS ORDERED: CITRIC ACID/SODIUM CITRATE 15 ML UDC ONE (02:02)
[2021-05-20] MEDS ORDERED: KETOROLAC 30 MG/ML VIAL IV PRN (03:15)
[2021-05-20] MEDS ORDERED: ONDANSETRON INJ 2 MG/ML 2 ML VIAL IV PRN ×2 (03:15→21:15)
[2021-05-20] MEDS ORDERED: ePHEDrine sulfate 50 MG/ML AMP IV PRN (03:15)
[2021-05-20] MEDS ORDERED: diphenhydrAMINE 50 MG/ML VIAL IV PRN ×2 (03:15→21:15)
[2021-05-20] MEDS ORDERED: SODIUM CHLORIDE 0.9% 1000ML 1,000 ML IV SCH (03:15)
[2021-05-20] MEDS ORDERED: MoRPHine SULFATE PF 1 MG/ML 10 ML AMP/VIAL EPI ONE (03:15)
[2021-05-20] MEDS ORDERED: DC INTRASPINAL MORPHINE SCH (03:15)
[2021-05-20] MEDS ORDERED: NALBUPHINE HCL INJ 10 MG/ML AMP IV PRN (03:15)
[2021-05-20] MEDS ORDERED: NALOXONE HCL 0.08 MG in SYRINGE 1.8 ML IV PRN (03:15)
[2021-05-20] MEDS ORDERED: NALOXONE HCL 1 MG in SODIUM CHLORIDE 0.9% 1000ML 1,000 ML IV PRN (03:15)
[2021-05-20] MEDS ORDERED: NALOXONE HCL 0.4 MG/1 ML VIAL/CARP IV PRN (03:15)
[2021-05-20] MEDS ORDERED: NO NARCOTICS OR SEDATIVES SCH (03:15)
[2021-05-20] MEDS ORDERED: LACTATED RINGER'S 500 ML IV PRN (03:15)
[2021-05-20] MEDS ORDERED: PROMETHAZINE HCL 12.5 MG in SODIUM CHLORIDE 0.9% 50 ML IV PRN (03:15)
[2021-05-20] MEDS ORDERED: MoRPHine SULFATE 2 MG/ML CARP IV PRN (03:15)
[2021-05-20] MEDS ORDERED: PHENYLEPHRINE 100MCG/ML 5ML SYR ONE (03:27)
[2021-05-20] MEDS ORDERED: ONDANSETRON INJ 2 MG/ML 2 ML VIAL ONE (03:27)
[2021-05-20] MEDS ORDERED: LIDOCAINE 2%/EPINEPHRINE 1:200,000 20 ML SDV ONE (03:27)
[2021-05-20] MEDS ORDERED: OXYTOCIN 10 UNITS/ML VIAL ONE (03:27)
[2021-05-20] MEDS ORDERED: miSOPROStoL 200 MCG TAB ONE (03:59)
[2021-05-20] MEDS ORDERED: SUPERCREAM 0.870% 15 GM JAR EXT PRN (04:15)
[2021-05-20] MEDS ORDERED: HYDROCORTISONE ACETATE 25 MG SUPP PR PRN (04:15)
[2021-05-20] MEDS ORDERED: SENNA 8.6 MG TAB PO PRN (04:15)
[2021-05-20] MEDS ORDERED: BENZOCAINE 20% AER SPR 82.5 GM CAN EXT PRN (04:15)
[2021-05-20] MEDS ORDERED: DIPHTHERIA/TETANUS/PERTUSSIS 0.5 ML SYR/VIAL IM ONE (04:15)
[2021-05-20] MEDS ORDERED: MAGNESIUM HYDROXIDE SUSP 30 ML UDC PO PRN (04:15)
--- NOTE | 2021-05-20 04:17 | Anesthesia Procedure Note ---
Date of Service May 20, 2021 Anesthesia Post Epidural Note Vital Signs Vital Signs: Temp Pulse Resp BP Pulse Ox 36.8 C 82 18 140/77 100 05/20/21 00:00 05/20/21 04:13 05/20/21 02:00 05/20/21 04:13 05/20/21 04:13 Pain Intensity Bilateral Abdomen: Pain Intensity: 0 Notes Mental Status: alert / awake / arousable and participated in evaluation Patient Amnestic to Procedure: No Nausea / Vomiting: adequately controlled Pain: adequately controlled Airway Patency, RR, SpO2: stable & adequate BP & HR: stable & adequate Hydration State: stable & adequate Neuraxial Anesthesia: was administered and sensory block is resolving Anesthetic Complications: no major complications apparent and Pt Satisfied with anesthetic care Epidural: Removed without complications and With tip intact
--- NOTE | 2021-05-20 04:17 | Anesthesiology Progress Note ---
Date of Service May 20, 2021 Anesthesia Post Procedure Vital Signs Vital Signs: Temp Pulse Resp BP Pulse Ox 05/20/21 04:13 82 140/77 100 05/20/21 02:13 86 97 05/20/21 02:08 84 93 05/20/21 02:05 78 139/65 05/20/21 02:03 80 98 05/20/21 02:00 18 05/20/21 01:58 81 97 05/20/21 01:53 78 98 05/20/21 01:51 75 122/102 H 05/20/21 01:48 77 95 05/20/21 01:47 89 92 05/20/21 01:43 81 98 05/20/21 01:38 91 H 96 05/20/21 01:36 88 94 05/20/21 01:35 93 H 141/79 H 05/20/21 01:33 93 H 99 05/20/21 01:28 79 98 05/20/21 01:23 80 96 05/20/21 01:20 79 128/73 05/20/21 01:18 75 97 05/20/21 01:13 91 H 97 05/20/21 01:08 92 H 97 05/20/21 01:03 92 H 98 05/20/21 01:00 18 05/20/21 00:58 110 H 91 05/20/21 00:57 105 H 90 05/20/21 00:53 82 100 05/20/21 00:50 76 137/65 05/20/21 00:48 84 97 05/20/21 00:43 76 97 05/20/21 00:38 78 99 05/20/21 00:36 74 122/60 05/20/21 00:35 77 133/70 05/20/21 00:33 71 96 05/20/21 00:30 18 05/20/21 00:28 76 97 05/20/21 00:23 73 97 05/20/21 00:21 72 126/68 05/20/21 00:18 70 97 05/20/21 00:13 71 97 05/20/21 00:08 72 98 05/20/21 00:05 74 125/64 05/20/21 00:03 72 99 05/20/21 00:00 36.8 C 18 05/19/21 23:58 81 99 05/19/21 23:55 97 H 93 05/19/21 23:53 84 98 05/19/21 23:50 82 131/78 05/19/21 23:48 82 98 05/19/21 23:43 81 98 05/19/21 23:38 81 99 05/19/21 23:36 79 136/83 05/19/21 23:33 79 97 05/19/21 23:30 18 05/19/21 23:28 74 98 05/19/21 23:23 80 98 05/19/21 23:20 82 129/74 05/19/21 23:18 84 100 05/19/21 23:13 88 99 05/19/21 23:08 104 H 96 05/19/21 23:05 82 131/75 05/19/21 23:03 72 99 05/19/21 23:00 18 05/19/21 22:58 70 98 05/19/21 22:53 74 99 05/19/21 22:50 71 135/79 05/19/21 22:48 75 99 05/19/21 22:43 81 100 05/19/21 22:38 89 97 05/19/21 22:36 85 93 05/19/21 22:35 75 131/70 05/19/21 22:33 77 99 05/19/21 22:30 18 05/19/21 22:28 75 99 05/19/21 22:23 82 99 05/19/21 22:21 75 134/69 05/19/21 22:18 86 98 05/19/21 22:13 78 99 05/19/21 22:08 75 97 05/19/21 22:05 74 132/72 05/19/21 22:03 72 97 05/19/21 22:00 18 05/19/21 21:58 72 98 05/19/21 21:53 75 98 05/19/21 21:50 70 126/70 05/19/21 21:48 71 98 05/19/21 21:43 69 98 05/19/21 21:38 73 98 05/19/21 21:35 67 121/67 05/19/21 21:33 68 99 05/19/21 21:30 18 05/19/21 21:28 71 99 05/19/21 21:23 79 97 05/19/21 21:20 69 125/71 05/19/21 21:18 76 99 05/19/21 21:13 73 98 05/19/21 21:08 87 99 05/19/21 21:05 74 131/76 05/19/21 21:03 76 99 05/19/21 21:00 37.0 C 18 05/19/21 20:58 71 98 05/19/21 20:53 71 99 05/19/21 20:50 73 123/69 05/19/21 20:48 71 100 05/19/21 20:43 69 98 05/19/21 20:38 68 99 05/19/21 20:35 71 122/72 05/19/21 20:33 69 99 05/19/21 20:30 18 05/19/21 20:28 74 99 05/19/21 20:23 70 99 05/19/21 20:20 73 119/68 05/19/21 20:18 71 99 05/19/21 20:13 74 99 05/19/21 20:08 73 98 05/19/21 20:05 82 118/69 05/19/21 20:03 75 98 05/19/21 19:58 72 98 05/19/21 19:53 73 98 05/19/21 19:50 78 125/72 05/19/21 19:48 79 99 05/19/21 19:43 75 99 05/19/21 19:38 72 99 05/19/21 19:35 71 142/65 H 05/19/21 19:33 75 98 05/19/21 19:30 18 05/19/21 19:28 78 99 05/19/21 19:23 73 99 05/19/21 19:21 75 145/87 H 05/19/21 19:18 75 98 05/19/21 19:15 37.1 C 18 05/19/21 19:13 77 98 05/19/21 19:08 86 97 05/19/21 19:06 83 133/87 05/19/21 19:03 77 99 05/19/21 18:58 75 99 05/19/21 18:53 77 99 05/19/21 18:50 73 130/73 05/19/21 18:48 73 99 05/19/21 18:43 74 98 05/19/21 18:38 76 100 07/15/21 18:36 74 129/59 L 05/19/21 18:33 78 99 05/19/21 18:28 82 99 05/19/21 18:23 88 157/65 H 99 05/19/21 18:18 77 98 05/19/21 18:13 76 98 05/19/21 18:08 76 99 05/19/21 18:07 78 114/55 L 05/19/21 18:03 76 97 05/19/21 17:58 79 97 05/19/21 17:53 82 98 05/19/21 17:50 80 106/55 L 05/19/21 17:48 79 98 05/19/21 17:43 75 99 05/19/21 17:38 88 98 05/19/21 17:33 82 98 05/19/21 17:31 82 16 109/57 L 05/19/21 17:28 86 98 05/19/21 17:26 77 110/52 L 05/19/21 17:24 88 91 05/19/21 17:23 82 98 05/19/21 17:20 80 119/58 L 05/19/21 17:18 87 99 05/19/21 17:15 77 127/67 05/19/21 17:13 73 98 05/19/21 17:10 78 114/55 L 05/19/21 17:08 84 97 05/19/21 17:05 76 16 108/59 L 05/19/21 17:03 77 98 05/19/21 17:00 79 109/53 L 05/19/21 16:58 78 98 05/19/21 16:54 77 121/59 L 05/19/21 16:53 80 97 05/19/21 16:52 80 122/60 05/19/21 16:50 75 127/63 05/19/21 16:48 79 126/60 98 05/19/21 16:46 82 121/61 05/19/21 16:44 82 126/68 05/19/21 16:43 84 100 05/19/21 16:42 80 123/70 05/19/21 16:40 88 122/68 05/19/21 16:38 85 100 05/19/21 16:33 90 99 05/19/21 14:59 36.6 C 88 20 144/84 H 05/19/21 14:55 88 144/84 H Pain Intensity Bilateral Abdomen: Pain Intensity: 0 Notes Mental Status: alert / awake / arousable and participated in evaluation Patient Amnestic to Procedure: No Nausea / Vomiting: adequately controlled Pain: adequately controlled Airway Patency, RR, SpO2: stable & adequate BP & HR: stable & adequate Hydration State: stable & adequate Neuraxial Anesthesia: was administered and sensory block is resolving Anesthetic Complications: no major complications apparent and Pt Satisfied with anesthetic care
--- NOTE | 2021-05-20 04:20 | Post Operative Brief Note ---
Immediate Post Op Note v1 Date of Surgery May 20, 2021 Pre & Post Diagnosis Operation Date: 05/20/21 01:50 Pre-Op Diagnosis: 1.) Failure to Progress Post-Op Diagnosis: Same as Pre Op I identified the patient and participated in the time-out.: Yes Procedure Operation Date: 05/20/21 01:50 Actual Procedures p Repeat Section for the of a live female child at 0259. - Enrique Briggs MD Surgeon Enrique Briggs MD Jaw Skinner grant Estimated Blood Loss 600 Findings Consistent with Post-Op Diagnosis Drains Norris Catheter
[2021-05-20] MEDS: OXYTOCIN 20 UNITS in LACTATED RINGER'S 1,000 ML IV SCH ×3 (05:10→22:15)
--- NOTE | 2021-05-20 07:41 | Operative Report (OR) ---
INDICATIONS FOR SURGERY: This is a 30-year-old G2, P1, at term, who underwent trial of labor after section. The patient was dilated to 9 cm with failure to progress. Decision was therefore made to perform section. PREOPERATIVE DIAGNOSES: 1. at term. 2. Failed trial of labor after section. 3. Failure to progress. SURGEON: Enrique Briggs MD ASSEMBLER CLIP ON SUNGLASSES: Carla Iyer MD and Britany Lo RN PROCEDURE: Repeat section. ANESTHESIA: Epidural. ESTIMATED BLOOD LOSS: 600 mL INTRAVENOUS FLUIDS: 1500 mL URINE: 200 mL of clear urine at end of procedure. FINDINGS: The patient had several adhesions in the abdomen. There was significant adhesion between the uterus and abdominal wall. COMPLICATIONS: None. DRAINS: None. INTRAOPERATIVE CONSULTATION: None. PATHOLOGY: Placenta. There was a live in cephalic presentation. No nuchal cord. was handed over to the pediatric team. Details of 's gestation is in the pediatric record. DESCRIPTION OF PROCEDURE: The patient was taken to the operating room where she was prepped and draped in normal sterile fashion in lithotomy position. A Pfannenstiel incision was made with a scalpel through the old scar and carried down to the fascia. Fascia was incised in the midline and extended laterally on both sides. The fascia was sharply dissected off the rectus abdominis muscle. Peritoneum was identified and entered sharply. Once inside the abdomen, several adhesions were significant. The anterior part of the uterus was adherent to the abdominal wall. The bladder on the right side was also adherent to the superior part of the left uterus. These were carefully dissected with Metzenbaum scissors. A low transverse incision was made through the lower segment of the uterus and extended laterally on both sides. The distribution center assistant pushed the head back into the uterus. was delivered. Cord was clamped and cut and handed over to the pediatric team. Further evaluation of the uterine incision showed there was some extension from the transverse incision down towards the cervix. This was carefully sutured in layers. There was good hemostasis. Uterine incision was closed in 2 layers using Vicryl stitch. There was good hemostasis as well. At this time, both ovaries and tubes were identified and appeared grossly normal. Copious amount of irrigation was used to irrigate the abdomen. There was good hemostasis of the uterine incision site as well as the adhesion sites that had been dissected. The fascia was closed in a running fashion using 1 PDS suture. More irrigation was used to irrigate the subcutaneous space which was approximated with 2-0 plain suture. Skin was closed with natalie. All instruments were removed from the abdomen and vagina and accounted for x2 including sponges, needles, and retractors. The patient was sent to recovery in stable condition. Job ID: [id number] [facility]
[2021-05-20] MEDS ORDERED: FERROUS SULFATE 325 MG TAB PO SCH (08:00)
[2021-05-20] MEDS: SIMETHICONE 80 MG CHEW PO SCH ×4 (09:05→21:07)
[2021-05-20] MEDS: DOCUSATE SODIUM 100 MG CAP PO SCH ×2 (09:06→21:07)
[2021-05-20] MEDS: PRENATAL VITAMIN 1 TAB PO SCH (09:07)
--- NOTE | 2021-05-20 09:10 | Obstetrical Progress Note ---
Date of Service May 20, 2021 Assessment & Plan Admission and Anticipated Discharge Date Admission Date: May 19, 2021 Subjective Postop check Patient is seen and examined Feels well, no complaints No Pain No CP/ SOB/palpitation/ Dizziness/ N&V/ VB/ Leg pain Not OOB yet Tolerating clears Holding and trying to breast feeding Vital Signs Temp Pulse Pulse Resp BP BP Pulse Ox 05/20/21 07:39 36.4 C L 113 H 16 101/71 98 05/20/21 07:35 16 97 05/20/21 06:45 18 97 05/20/21 06:15 36.8 C 18 05/20/21 05:58 111 H 96 05/20/21 05:53 105 H 95 05/20/21 05:50 99 H 131/61 05/20/21 05:48 103 H 95 05/20/21 05:45 18 05/20/21 05:44 99 H 94 05/20/21 05:43 106 H 97 05/20/21 05:38 111 H 97 05/20/21 05:33 104 H 95 05/20/21 05:28 110 H 96 05/20/21 05:25 106 H 94 05/20/21 05:23 108 H 96 05/20/21 05:19 105 H 93 05/20/21 05:18 108 H 97 05/20/21 05:15 116 H 126/68 05/20/21 05:13 117 H 97 05/20/21 05:08 108 H 95 05/20/21 05:05 120 H 130/66 05/20/21 05:03 125 H 96 05/20/21 04:58 118 H 95 05/20/21 04:56 106 H 93 05/20/21 04:55 105 H 125/55 L 05/20/21 04:53 107 H 96 05/20/21 04:48 104 H 97 05/20/21 04:47 113 H 132/61 05/20/21 04:46 111 H 92 05/20/21 04:43 99 H 97 05/20/21 04:41 93 H 93 05/20/21 04:38 86 98 05/20/21 04:35 72 18 154/81 H 05/20/21 04:33 73 99 05/20/21 04:28 78 100 05/20/21 04:25 72 18 155/83 H 05/20/21 04:23 79 100 05/20/21 04:18 87 99 05/20/21 04:15 37.6 C H 18 05/20/21 04:13 82 140/77 100 05/20/21 02:15 18 05/20/21 02:13 86 97 05/20/21 02:08 84 93 05/20/21 02:05 78 139/65 05/20/21 02:03 80 98 05/20/21 02:00 18 05/20/21 01:58 81 97 05/20/21 01:53 78 98 05/20/21 01:51 75 122/102 H 05/20/21 01:48 77 95 05/20/21 01:47 89 92 05/20/21 01:43 81 98 05/20/21 01:38 91 H 96 05/20/21 01:36 88 94 05/20/21 01:35 93 H 141/79 H 05/20/21 01:33 93 H 99 05/20/21 01:30 18 05/20/21 01:28 79 98 05/20/21 01:23 80 96 05/20/21 01:20 79 128/73 05/20/21 01:18 75 97 05/20/21 01:13 91 H 97 05/20/21 01:08 92 H 97 05/20/21 01:03 92 H 98 05/20/21 01:00 18 05/20/21 00:58 110 H 91 05/20/21 00:57 105 H 90 05/20/21 00:53 82 100 05/20/21 00:50 76 137/65 05/20/21 00:48 84 97 05/20/21 00:43 76 97 05/20/21 00:38 78 99 05/20/21 00:36 74 122/60 05/20/21 00:35 77 133/70 05/20/21 00:33 71 96 05/20/21 00:30 18 05/20/21 00:28 76 97 05/20/21 00:23 73 97 05/20/21 00:21 72 126/68 05/20/21 00:18 70 97 05/20/21 00:13 71 97 05/20/21 00:08 72 98 05/20/21 00:05 74 125/64 05/20/21 00:03 72 99 05/20/21 00:00 36.8 C 18 05/19/21 23:58 81 99 05/19/21 23:55 97 H 93 05/19/21 23:53 84 98 05/19/21 23:50 82 131/78 05/19/21 23:48 82 98 05/19/21 23:43 81 98 05/19/21 23:38 81 99 05/19/21 23:36 79 136/83 05/19/21 23:33 79 97 05/19/21 23:30 18 05/19/21 23:28 74 98 05/19/21 23:23 80 98 05/19/21 23:20 82 129/74 05/19/21 23:18 84 100 05/19/21 23:13 88 99 05/19/21 23:08 104 H 96 05/19/21 23:05 82 131/75 05/19/21 23:03 72 99 05/19/21 23:00 18 05/19/21 22:58 70 98 05/19/21 22:53 74 99 05/19/21 22:50 71 135/79 05/19/21 22:48 75 99 05/19/21 22:43 81 100 05/19/21 22:38 89 97 05/19/21 22:36 85 93 05/19/21 22:35 75 131/70 05/19/21 22:33 77 99 05/19/21 22:30 18 05/19/21 22:28 75 99 05/19/21 22:23 82 99 05/19/21 22:21 75 134/69 05/19/21 22:18 86 98 05/19/21 22:13 78 99 05/19/21 22:08 75 97 05/19/21 22:05 74 132/72 05/19/21 22:03 72 97 05/19/21 22:00 18 05/19/21 21:58 72 98 05/19/21 21:53 75 98 05/19/21 21:50 70 126/70 05/19/21 21:48 71 98 05/19/21 21:43 69 98 05/19/21 21:38 73 98 05/19/21 21:35 67 121/67 05/19/21 21:33 68 99 05/19/21 21:30 18 05/19/21 21:28 71 99 05/19/21 21:23 79 97 05/19/21 21:20 69 125/71 05/19/21 21:18 76 99 05/19/21 21:13 73 98 Lab Results 05/19/21 05/19/21 05/19/21 Range/Units 14:50 14:50 15:47 WBC 9.34 (4.8-10.8) K/uL RBC 4.38 (4.2-5.4) M/uL Hgb 12.8 (12.0-16.0) g/dL Hct 38.5 (37-47) % MCV 87.9 (80-100) fL MCH 29.2 (25-34) pg MCHC 33.2 (32-36) g/dL RDW Std Deviation 46.2 (36.4-46.3) fL RDW Coeff of Rhoda 14.2 (11.5-14.5) % Plt Count 183 (130-400) K/uL MPV 10.9 H (7.4-10.4) fL COVID-19 Eval Order Covid19 [facility] SARS-CoV-2, RNA, NAAT NEGATIVE (NEGATIVE) Intake & Output 05/19/21 05/20/21 05/20/21 22:59 06:59 14:59 Intake Total 859.750 / 4386.521 5960.6 / 1873.350 Output Total 400 / 600 200 / 600 Balance 459.750 / 1273.350 813.6 / 1273.350 Weight 122.924 kg Intake: IV 859.750 / 5759.480 6577.6 / 1873.350 Lactated Ringer's 1,000 ml @ 857.583 / 4265.924 6910 / 1857.583 125 mls/hr IV .Q8H PRN Rx#: [id number] Oxytocin 30 units In 500 ml @ 0 2.167 / 15.767 13.6 / 15.767 .36 UNITS/HR 6 mls/hr IV .Q24H PRN Rx#:[id number] Output: Urine Amount (Catheter) 400 / 600 200 / 600 Norris/Indwelling 200 / 200 Straight 400 / 400 PE: General: Alert, orientedx3, NAD CVS: S1S2 RRR Lungs: CTAB Abd: soft, NT, ND, BS+, Incisions C/D/I No VB Ext: NT, no edema, SCD's on AP: 30 yo female s/p RCsection after TOLAC , pod#0 VSS Afebrile doing well Tachycardic, asymptomatic, holding baby UOP adequate 02 sat 100% in RA Will run H&H Continue to monitor closely Results & Data ([facility]) Vital Signs (Past 12 Hours) Vital Signs Temp Pulse Pulse Resp BP BP Pulse Ox 05/20/21 07:39 36.4 C L 113 H 16 101/71 98 05/20/21 07:35 16 97 05/20/21 06:45 18 97 05/20/21 06:15 36.8 C 18 05/20/21 05:58 111 H 96 05/20/21 05:53 105 H 95 05/20/21 05:50 99 H 131/61 05/20/21 05:48 103 H 95 05/20/21 05:45 18 05/20/21 05:44 99 H 94 05/20/21 05:43 106 H 97 05/20/21 05:38 111 H 97 05/20/21 05:33 104 H 95 05/20/21 05:28 110 H 96 05/20/21 05:25 106 H 94 05/20/21 05:23 108 H 96 05/20/21 05:19 105 H 93 05/20/21 05:18 108 H 97 05/20/21 05:15 116 H 126/68 05/20/21 05:13 117 H 97 05/20/21 05:08 108 H 95 05/20/21 05:05 120 H 130/66 05/20/21 05:03 125 H 96 05/20/21 04:58 118 H 95 05/20/21 04:56 106 H 93 05/20/21 04:55 105 H 125/55 L 05/20/21 04:53 107 H 96 05/20/21 04:48 104 H 97 05/20/21 04:47 113 H 132/61 05/20/21 04:46 111 H 92 05/20/21 04:43 99 H 97 05/20/21 04:41 93 H 93 05/20/21 04:38 86 98 05/20/21 04:35 72 18 154/81 H 05/20/21 04:33 73 99 05/20/21 04:28 78 100 05/20/21 04:25 72 18 155/83 H 05/20/21 04:23 79 100 05/20/21 04:18 87 99 05/20/21 04:15 37.6 C H 18 05/20/21 04:13 82 140/77 100 05/20/21 02:15 18 05/20/21 02:13 86 97 05/20/21 02:08 84 93 05/20/21 02:05 78 139/65 05/20/21 02:03 80 98 05/20/21 02:00 18 05/20/21 01:58 81 97 05/20/21 01:53 78 98 05/20/21 01:51 75 122/102 H 05/20/21 01:48 77 95 05/20/21 01:47 89 92 05/20/21 01:43 81 98 05/20/21 01:38 91 H 96 05/20/21 01:36 88 94 05/20/21 01:35 93 H 141/79 H 05/20/21 01:33 93 H 99 05/20/21 01:30 18 05/20/21 01:28 79 98 05/20/21 01:23 80 96 05/20/21 01:20 79 128/73 05/20/21 01:18 75 97 05/20/21 01:13 91 H 97 05/20/21 01:08 92 H 97 05/20/21 01:03 92 H 98 05/20/21 01:00 18 05/20/21 00:58 110 H 91 05/20/21 00:57 105 H 90 05/20/21 00:53 82 100 05/20/21 00:50 76 137/65 05/20/21 00:48 84 97 05/20/21 00:43 76 97 05/20/21 00:38 78 99 05/20/21 00:36 74 122/60 05/20/21 00:35 77 133/70 05/20/21 00:33 71 96 05/20/21 00:30 18 05/20/21 00:28 76 97 05/20/21 00:23 73 97 07/16/21 00:21 72 126/68 05/20/21 00:18 70 97 05/20/21 00:13 71 97 05/20/21 00:08 72 98 05/20/21 00:05 74 125/64 05/20/21 00:03 72 99 05/20/21 00:00 36.8 C 18 05/19/21 23:58 81 99 05/19/21 23:55 97 H 93 05/19/21 23:53 84 98 05/19/21 23:50 82 131/78 05/19/21 23:48 82 98 05/19/21 23:43 81 98 05/19/21 23:38 81 99 05/19/21 23:36 79 136/83 05/19/21 23:33 79 97 05/19/21 23:30 18 05/19/21 23:28 74 98 05/19/21 23:23 80 98 05/19/21 23:20 82 129/74 05/19/21 23:18 84 100 05/19/21 23:13 88 99 05/19/21 23:08 104 H 96 05/19/21 23:05 82 131/75 05/19/21 23:03 72 99 05/19/21 23:00 18 05/19/21 22:58 70 98 05/19/21 22:53 74 99 05/19/21 22:50 71 135/79 05/19/21 22:48 75 99 05/19/21 22:43 81 100 05/19/21 22:38 89 97 05/19/21 22:36 85 93 05/19/21 22:35 75 131/70 05/19/21 22:33 77 99 05/19/21 22:30 18 05/19/21 22:28 75 99 05/19/21 22:23 82 99 05/19/21 22:21 75 134/69 05/19/21 22:18 86 98 05/19/21 22:13 78 99 05/19/21 22:08 75 97 05/19/21 22:05 74 132/72 05/19/21 22:03 72 97 05/19/21 22:00 18 05/19/21 21:58 72 98 05/19/21 21:53 75 98 05/19/21 21:50 70 126/70 05/19/21 21:48 71 98 05/19/21 21:43 69 98 05/19/21 21:38 73 98 05/19/21 21:35 67 121/67 05/19/21 21:33 68 99 05/19/21 21:30 18 05/19/21 21:28 71 99 05/19/21 21:23 79 97 05/19/21 21:20 69 125/71 05/19/21 21:18 76 99 05/19/21 21:13 73 98 05/19/21 21:08 87 99
[2021-05-20] MEDS ORDERED: SODIUM CHLORIDE 0.9% 1000ML 500 ML IV ONE (09:24)
[2021-05-20 09:50] LABS: Hematocrit (blood only) 25.8 % (37-47); Hemoglobin 8.5 g/dL (12.0-16.0)
[2021-05-20] MEDS: ESCITALOPRAM OXALATE 20 MG TAB PO SCH (10:36)
[2021-05-20] MEDS: FERROUS SULFATE 325 MG TAB PO SCH (21:07)
[2021-05-20] MEDS ORDERED: PROMETHAZINE HCL 25 MG in SODIUM CHLORIDE 0.9% 50 ML IV PRN (21:15)
[2021-05-20] MEDS: oxyCODONE/ACETAMINOPHEN 5mg/325mg TAB PO PRN (22:28)
[2021-05-20] MEDS: IBUPROFEN 600 MG TAB PO PRN (22:28)
[2021-05-20] MEDS ORDERED: METHYLERGONOVINE MALEATE 0.2 MG/ML AMP ONE (22:32)
[2021-05-20] MEDS ORDERED: SODIUM CHLORIDE 0.9% 500 ML IV ONE (22:40)
--- NOTE | 2021-05-20 23:16 | Obstetrical Progress Note ---
Date of Service May 20, 2021 Assessment & Plan Admission and Anticipated Discharge Date Admission Date: May 19, 2021 Subjective I was called about the patient bleeding. She soaked a pad in 1-1/2 hours and felt dizzy in the bathroom when she ambulated. Patient is in the bed eating crackers and looks comfortable now. She denies dizziness, lightheadedness, chest pain, shortness of breath, headaches nor vagi nal bleeding. She denies any pain, fever, chills. She has been breast-feeding her baby and needs to rest. Vital signs stable afebrile, tachycardia improved, Urine output was adequate, Norris was removed, Abdomen is soft nontender nondistended, dressing is dry, fundus is firm 1 cm below the umbilicus, Perineum is clean, intact and dry, no bleeding from vagina. And no blood on the pad. Methergine IM was given and will continue with IV Pitocin. We will obtain CBC, PT, PTT, INR and fibrinogen and continue to monitor closely. Results & Data ([facility]) Vital Signs (Past 12 Hours) Vital Signs Temp Pulse Resp BP Pulse Ox 05/20/21 22:56 36.9 C 99 H 16 106/63 95 05/20/21 22:35 36.6 C 97 H 18 105/68 98 05/20/21 21:00 16 99 05/20/21 20:20 16 96 05/20/21 19:00 36.7 C 100 H 16 99/64 L 95 05/20/21 17:10 16 97 05/20/21 16:00 16 98 05/20/21 15:05 36.6 C 116 H 20 104/70 98 05/20/21 14:21 16 98 05/20/21 13:16 16 110 H 05/20/21 12:05 16 96 05/20/21 11:58 36.8 C 103 H 16 130/74
[2021-05-21 00:07] LABS: Fibrinogen 438 mg/dl (184-400); Partial Thromboplastin Time 26.2 Seconds (21.0-31.0); Prothrombin Time 9.9 Seconds (9.0-12.0)
[2021-05-21 00:18] LABS: Hematocrit (blood only) 18.7 % (37-47); Hemoglobin 6.3 g/dL (12.0-16.0); Mean Corpuscular Hemoglobin 29.2 pg (25-34); Mean Corpuscular Hgb Conc 33.7 g/dL (32-36); Mean Corpuscular Volume 86.6 fL (80-100); Mean Platelet Volume 10.3 fL (7.4-10.4); Platelet Count 142 K/uL (130-400); RDW Standard Deviation 47.6 fL (36.4-46.3); Red Blood Count 2.16 M/uL (4.2-5.4); White Blood Count 8.94 K/uL (4.8-10.8)
[2021-05-21] MEDS ORDERED: SODIUM CHLORIDE 0.9% 250 ML IV PRN (00:18)
[2021-05-21 00:42] LABS: Basophilic Stippling 1+; Basophils # (auto) 0.01 K/uL (0-0.2); Basophils % (auto) 0.1 %; Eosinophils # (auto) 0.03 K/uL (0-0.5); Eosinophils % (auto) 0.3 %; Immature Granulocytes # (auto) 0.01 K/uL (0.00-0.02); Immature Granulocytes % (auto) 0.1 %; Lymphocytes # (auto) 0.91 K/uL (1.2-3.4); Lymphocytes % (auto) 10.2 %; Monocytes # (auto) 0.58 K/uL (0.11-0.59); Monocytes % (auto) 6.5 %; Neutrophils % (auto) 82.8 %
--- NOTE | 2021-05-21 00:42 | Obstetrical Progress Note ---
Date of Service May 21, 2021 Assessment & Plan Admission and Anticipated Discharge Date Admission Date: May 19, 2021 Subjective Lab Results 05/19/21 05/19/21 05/19/21 Range/Units 14:50 14:50 15:47 WBC (4.8-10.8) K/uL RBC (4.2-5.4) M/uL Hgb (12.0-16.0) g/dL Hct (37-47) % MCV (80-100) fL MCH (25-34) pg MCHC (32-36) g/dL RDW Std Deviation (36.4-46.3) fL RDW Coeff of Rhoda (11.5-14.5) % Plt Count (130-400) K/uL MPV (7.4-10.4) fL PT (9.0-12.0) Seconds INR (0.9-1.1) APTT (21.0-31.0) Seconds PTT Ratio Fibrinogen (184-400) mg/dl COVID-19 Eval Order Covid19 [facility] SARS-CoV-2, RNA, NAAT NEGATIVE (NEGATIVE) Crossmatch See Detail 05/19/21 05/20/21 05/20/21 Range/Units 15:47 09:21 23:17 WBC 9.34 8.94 (4.8-10.8) K/uL RBC 4.38 2.16 L (4.2-5.4) M/uL Hgb 12.8 8.5 L D 6.3 L* (12.0-16.0) g/dL Hct 38.5 25.8 L 18.7 L* (37-47) % MCV 87.9 86.6 (80-100) fL MCH 29.2 29.2 (25-34) pg MCHC 33.2 33.7 (32-36) g/dL RDW Std Deviation 46.2 47.6 H (36.4-46.3) fL RDW Coeff of Rhoda 14.2 15.0 H (11.5-14.5) % Plt Count 183 142 (130-400) K/uL MPV 10.9 H 10.3 (7.4-10.4) fL PT (9.0-12.0) Seconds INR (0.9-1.1) APTT (21.0-31.0) Seconds PTT Ratio Fibrinogen (184-400) mg/dl COVID-19 Eval Order SARS-CoV-2, RNA, NAAT (NEGATIVE) Crossmatch 05/20/21 Range/Units 23:17 WBC (4.8-10.8) K/uL RBC (4.2-5.4) M/uL Hgb (12.0-16.0) g/dL Hct (37-47) % MCV (80-100) fL MCH (25-34) pg MCHC (32-36) g/dL RDW Std Deviation (36.4-46.3) fL RDW Coeff of Rhoda (11.5-14.5) % Plt Count (130-400) K/uL MPV (7.4-10.4) fL PT 9.9 (9.0-12.0) Seconds INR 1.0 (0.9-1.1) APTT 26.2 (21.0-31.0) Seconds PTT Ratio 1.0 Fibrinogen 438 H (184-400) mg/dl COVID-19 Eval Order SARS-CoV-2, RNA, NAAT (NEGATIVE) Crossmatch Reviewed H&H with patient She is in bed and has no complaints Pain is 0/10 Urinate din bed sena for 300 ml VVS, pulse came down to low 80's, Pulse Ox 98% RA, BP normal Bed side US; enlarged uterus, no free fluid in pelvis nor in upper abdomen Recommended 2 units of PRBCC transfusion Reviewed the risks with her, understood and signed and informed consent. All questions were answered. Results & Data ([facility]) Vital Signs (Past 12 Hours) Vital Signs Temp Pulse Resp BP Pulse Ox 05/20/21 22:56 36.9 C 99 H 16 106/63 95 05/20/21 22:35 36.6 C 97 H 18 105/68 98 05/20/21 21:00 16 99 05/20/21 20:20 16 96 05/20/21 19:00 36.7 C 100 H 16 99/64 L 95 05/20/21 17:10 16 97 05/20/21 16:00 16 98 05/20/21 15:05 36.6 C 116 H 20 104/70 98 07/16/21 14:21 16 98 05/20/21 13:16 16 110 H
[2021-05-21] MEDS: ACETAMINOPHEN 500 MG TAB PO PRN (00:57)
[2021-05-21] MEDS: diphenhydrAMINE Capsule 25 MG CAP PO PRN (00:58)
[2021-05-21] MEDS: METHYLERGONOVINE MALEATE 0.2 MG TAB PO SCH ×5 (02:40→19:40)
[2021-05-21] MEDS: oxyCODONE/ACETAMINOPHEN 5mg/325mg TAB PO PRN ×2 (04:17→21:14)
--- NOTE | 2021-05-21 04:17 | Obstetrical Progress Note ---
Date of Service May 21, 2021 Assessment & Plan Admission and Anticipated Discharge Date Admission Date: May 19, 2021 Subjective Patient has been sleeping but woke up and asked for pain meds 1st unit of PRBC is almost done Abd is soft but distended, tympanic to percussion VB scant Will order CT of abdomen/ pelvis Continue to monitor closely Results & Data ([facility]) Vital Signs (Past 12 Hours) Vital Signs Temp Pulse Pulse Resp BP BP Pulse Ox 05/21/21 03:20 36.5 C 76 16 114/73 05/21/21 03:10 36.5 C 75 18 113/73 96 05/21/21 02:40 36.3 C L 86 18 120/79 97 05/21/21 02:10 36.5 C 80 16 115/67 96 05/21/21 01:55 36.7 C 72 16 115/81 96 05/21/21 01:38 36.7 C 85 16 115/80 96 05/21/21 00:20 36.7 C 87 18 107/72 96 05/20/21 22:56 36.9 C 99 H 16 106/63 95 05/20/21 22:35 36.6 C 97 H 18 105/68 98 05/20/21 21:00 16 99 05/20/21 20:20 16 96 05/20/21 19:00 36.7 C 100 H 16 99/64 L 95 05/20/21 17:10 16 97
[2021-05-21] MEDS: IBUPROFEN 600 MG TAB PO PRN ×3 (04:18→21:13)
[2021-05-21] MEDS: OXYTOCIN 20 UNITS in LACTATED RINGER'S 1,000 ML IV SCH (07:19)
--- NOTE | 2021-05-21 07:30 | CT Scan Report ---
ABDOMEN AND PELVIS CT WITH IV CONTRAST CT DOSE: 1586.67 mGy.cm HISTORY: postop anemia, abdominal distension TECHNIQUE: Multiaxial CT images of the abdomen and pelvis were performed following the use of intrave nous contrast. A dose lowering technique was utilized adhering to the principles of ALARA. COMPARISON STUDY: None. FINDINGS: Trace bilateral pleural effusions and mild dependent change seen within the lung bases. Tra ce pneumoperitoneum likely due to the recent postoperative change. There is a Norris catheter within t he bladder. Enlarged and heterogeneous uterus with a heterogeneous and thickened endometrium containi ng a small of gas. There is subcutaneous gas and edema within the anterior abdominal wall consistent with a recent section. Small amount of fluid within the pelvis. No bowel wall thickening or obstruction. The liver, adrenal glands, pancreas, gallbladder, and kidneys unremarkable. No retroperi toneal hematoma or lymphadenopathy. Normal caliber abdominal aorta. The main portal vein is patent. T he spleen is mildly enlarged measuring 13 cm in length. Small amount of lobular hyperdense fluid ante rior to the uterus best seen on image 405 within the pelvis. This favors extraperitoneal hemorrhage. This extends along the right side of the abdomen best seen on image 300 were there is a 8 cm focus of hemorrhage. This is likely extraperitoneal. Probable small bilateral rectus sheath hematomas. IMPRESSION: 1. Small to moderate amount of extraperitoneal hemorrhage seen anterior to the uterus and along the r ight side of the abdomen as described above. This includes an 8 cm pocket of extraperitoneal hemorrha ge within the right lower quadrant. 2. Enlarged and heterogeneous uterus with thickened and heterogeneous endometrium containing small fo ci of gas. This likely corresponds the patient's recent history of a section. 3. Trace pneumoperitoneum with a small amount of pelvic free fluid. There is also subcutaneous gas an d edema within the lower anterior abdominal wall. Findings are consistent with a recent history of ce sarean section. 4. Splenomegaly. 5. These findings were called/faxed to the referring physician following dictation. 4. Suspect small bilateral rectus sheath hematomas. ACT 112: Negative or not required by law. Electronically signed by: Shai Pope M.D. 05/21/2021 7:29 AM
[2021-05-21 08:20] LABS: Eosinophils # (auto) 0.09 K/uL (0-0.5); Eosinophils % (auto) 0.9 %; Hematocrit (blood only) 24.2 % (37-47); Hemoglobin 8.3 g/dL (12.0-16.0); Immature Granulocytes # (auto) 0.02 K/uL (0.00-0.02); Immature Granulocytes % (auto) 0.2 %; Lymphocytes # (auto) 1.11 K/uL (1.2-3.4); Lymphocytes % (auto) 11.6 %; Mean Corpuscular Hgb Conc 34.3 g/dL (32-36); Mean Corpuscular Volume 84.6 fL (80-100); Monocytes # (auto) 0.67 K/uL (0.11-0.59); Neutrophils # (auto) 7.68 K/uL (1.4-6.5); Neutrophils % (auto) 80.3 %; Platelet Count 123 K/uL (130-400); RDW Coefficient of Variation 14.5 % (11.5-14.5); RDW Standard Deviation 45.2 fL (36.4-46.3); Red Blood Count 2.86 M/uL (4.2-5.4); White Blood Count 9.57 K/uL (4.8-10.8)
--- NOTE | 2021-05-21 08:33 | Obstetrical Progress Note ---
Date of Service May 21, 2021 Assessment & Plan Admission and Anticipated Discharge Date Admission Date: May 19, 2021 Subjective Patient is sleeping, wakes up upon touch No complaints Received 2 units of PRBCC H&H increased appropriately She had CT of abdomen/ pelvis, read by overnight radiology and was unremarkable. Then staff radiology read as 8 cm hematoma on RLQ. I called him, Dr Pope who stated that there is no active bleeding, part of 8 cm is also bowel loops and hematoma is not significant. He recommended to watch. Patient's VSS have been stable, pulse is dung at 70's UOP excellent I spoke with her surgeon, Dr Briggs and he is coming in to see her. Will hold on 3rd unit of blood for now and repeat H&H at noon. Lab Results 05/19/21 05/19/21 05/19/21 Range/Units 14:50 14:50 15:47 WBC (4.8-10.8) K/uL RBC (4.2-5.4) M/uL Hgb (12.0-16.0) g/dL Hct (37-47) % MCV (80-100) fL MCH (25-34) pg MCHC (32-36) g/dL RDW Std Deviation (36.4-46.3) fL RDW Coeff of Rhoda (11.5-14.5) % Plt Count (130-400) K/uL MPV (7.4-10.4) fL Immature Gran % (Auto) % Neut % (Auto) % Lymph % (Auto) % [place] % (Auto) % Eos % (Auto) % Baso % (Auto) % Neut # (Auto) (1.4-6.5) K/uL Lymph # (Auto) (1.2-3.4) K/uL [place] # (Auto) (0.11-0.59) K/uL Eos # (Auto) (0-0.5) K/uL Baso # (Auto) (0-0.2) K/uL Immature Gran # (Auto) (0.00-0.02) K/uL Basophilic Stippling PT (9.0-12.0) Seconds INR (0.9-1.1) APTT (21.0-31.0) Seconds PTT Ratio Fibrinogen (184-400) mg/dl COVID-19 Eval Order [facility]19 [facility] SARS-CoV-2, RNA, NAAT NEGATIVE (NEGATIVE) Blood Type A Positive Blood Type Recheck Antibody Screen NEGATIVE Crossmatch See Detail 05/19/21 05/20/21 05/20/21 Range/Units 15:47 09:21 23:17 WBC 9.34 8.94 (4.8-10.8) K/uL RBC 4.38 2.16 L (4.2-5.4) M/uL Hgb 12.8 8.5 L D 6.3 L* (12.0-16.0) g/dL Hct 38.5 25.8 L 18.7 L* (37-47) % MCV 87.9 86.6 (80-100) fL MCH 29.2 29.2 (25-34) pg MCHC 33.2 33.7 (32-36) g/dL RDW Std Deviation 46.2 47.6 H (36.4-46.3) fL RDW Coeff of Rhoda 14.2 15.0 H (11.5-14.5) % Plt Count 183 142 (130-400) K/uL MPV 10.9 H 10.3 (7.4-10.4) fL Immature Gran % (Auto) 0.1 % Neut % (Auto) 82.8 % Lymph % (Auto) 10.2 % C[place] % (Auto) 6.5 % Eos % (Auto) 0.3 % Baso % (Auto) 0.1 % Neut # (Auto) 7.40 H (1.4-6.5) K/uL Lymph # (Auto) 0.91 L (1.2-3.4) K/uL Cidra # (Auto) 0.58 (0.11-0.59) K/uL Eos # (Auto) 0.03 (0-0.5) K/uL Baso # (Auto) 0.01 (0-0.2) K/uL Immature Gran # (Auto) 0.01 (0.00-0.02) K/uL Basophilic Stippling 1+ PT (9.0-12.0) Seconds INR (0.9-1.1) APTT (21.0-31.0) Seconds PTT Ratio Fibrinogen (184-400) mg/dl COVID-19 Eval Order SARS-CoV-2, RNA, NAAT (NEGATIVE) Blood Type Blood Type Recheck Antibody Screen Crossmatch 05/20/21 05/20/21 05/21/21 Range/Units 23:17 23:19 08:09 WBC 9.57 (4.8-10.8) K/uL RBC 2.86 L (4.2-5.4) M/uL Hgb 8.3 L (12.0-16.0) g/dL Hct 24.2 L (37-47) % MCV 84.6 (80-100) fL MCH 29.0 (25-34) pg MCHC 34.3 (32-36) g/dL RDW Std Deviation 45.2 (36.4-46.3) fL RDW Coeff of Rhoda 14.5 (11.5-14.5) % Plt Count 123 L (130-400) K/uL MPV 10.0 (7.4-10.4) fL Immature Gran % (Auto) 0.2 % Neut % (Auto) 80.3 % Lymph % (Auto) 11.6 % [place] % (Auto) 7.0 % Eos % (Auto) 0.9 % Baso % (Auto) 0.0 % Neut # (Auto) 7.68 H (1.4-6.5) K/uL Lymph # (Auto) 1.11 L (1.2-3.4) K/uL Cidra # (Auto) 0.67 H (0.11-0.59) K/uL Eos # (Auto) 0.09 (0-0.5) K/uL Baso # (Auto) 0.00 (0-0.2) K/uL Immature Gran # (Auto) 0.02 (0.00-0.02) K/uL Basophilic Stippling PT 9.9 (9.0-12.0) Seconds INR 1.0 (0.9-1.1) APTT 26.2 (21.0-31.0) Seconds PTT Ratio 1.0 Fibrinogen 438 H (184-400) mg/dl COVID-19 Eval Order SARS-CoV-2, RNA, NAAT (NEGATIVE) Blood Type Blood Type Recheck A Positive Antibody Screen Crossmatch Results & Data ([facility]) Vital Signs (Past 12 Hours) Vital Signs Temp Pulse Pulse Resp BP BP Pulse Ox 05/21/21 07:05 36.5 C 72 16 110/75 98 05/21/21 06:15 36.5 C 75 16 105/71 99 05/21/21 05:43 36.6 C 83 16 96/64 L 97 05/21/21 05:29 36.4 C L 79 16 134/81 96 05/21/21 03:40 36.3 C L 71 16 108/72 05/21/21 03:20 36.5 C 76 16 114/73 05/21/21 03:10 36.5 C 75 18 113/73 96 05/21/21 02:40 36.3 C L 86 18 120/79 97 05/21/21 02:10 36.5 C 80 16 115/67 96 05/21/21 01:55 36.7 C 72 16 115/81 96 05/21/21 01:38 36.7 C 85 16 115/80 96 05/21/21 00:20 36.7 C 87 18 107/72 96 05/20/21 22:56 36.9 C 99 H 16 106/63 95 05/20/21 22:35 36.6 C 97 H 18 105/68 98 05/20/21 21:00 16 99
[2021-05-21 12:06] LABS: Hematocrit (blood only) 26.4 % (37-47); Hemoglobin 8.9 g/dL (12.0-16.0)
[2021-05-21] MEDS: FERROUS SULFATE 325 MG TAB PO SCH ×2 (12:10→19:40)
[2021-05-21] MEDS: SIMETHICONE 80 MG CHEW PO SCH ×4 (12:10→19:39)
[2021-05-21] MEDS: ESCITALOPRAM OXALATE 20 MG TAB PO SCH (12:11)
[2021-05-21] MEDS: DOCUSATE SODIUM 100 MG CAP PO SCH ×2 (12:11→19:30)
[2021-05-21] MEDS: PRENATAL VITAMIN 1 TAB PO SCH (12:11)
[2021-05-21 18:54] LABS: Hematocrit (blood only) 25.9 % (37-47); Hemoglobin 8.9 g/dL (12.0-16.0)
[2021-05-21] MEDS ORDERED: bisacodyL 5 MG TABEC PO SCH (20:00)
[2021-05-22] MEDS ORDERED: bisacodyL 10 MG SUPP PR PRN (04:15)
[2021-05-22 06:14] LABS: Hematocrit (blood only) 21.4 % (37-47); Hemoglobin 7.3 g/dL (12.0-16.0)
--- NOTE | 2021-05-22 07:22 | Obstetrical Progress Note ---
Date of Service May 22, 2021 Subjective Review of Systems doing well no dizziness or shortness of breath Physical Exam Constitutional WD/WN, vitals as above comfortable Respiratory normal respiratory effort, lungs clear to auscultation Cardiovascular Rate/Rhythm: regular rate and regular rhythm Gastrointestinal (Abdomen) Inspection/Auscultation: abdomen normal to inspection and + abdominal surgical incision Skin no rashes, warm and dry abdomen soft no pain with exam no guarding or rebound Results & Data ([facility]) Vital Signs (Past 12 Hours) Vital Signs Temp Pulse Resp BP Pulse Ox 05/22/21 04:20 36.7 C 89 16 111/70 97 05/21/21 23:06 36.9 C 106 H 16 113/67 96 05/21/21 19:41 36.6 C 98 H 18 112/71 Laboratory Results 05/19/21 05/19/21 05/19/21 14:50 14:50 15:47 WBC RBC Hgb Hct MCV MCH MCHC RDW Std Deviation RDW Coeff of Rhoda Plt Count MPV Immature Gran % (Auto) Neut % (Auto) Lymph % (Auto) Clay % (Auto) Eos % (Auto) Baso % (Auto) Neut # (Auto) Lymph # (Auto) Clay # (Auto) Eos # (Auto) Baso # (Auto) Immature Gran # (Auto) Basophilic Stippling PT INR APTT PTT Ratio Fibrinogen COVID-19 Eval Order Covid19 IDNow atMNDC SARS-CoV-2, RNA, NAAT NEGATIVE Blood Type A Positive Blood Type Recheck Antibody Screen NEGATIVE Crossmatch See Detail 05/19/21 05/20/21 05/20/21 15:47 09:21 23:17 WBC 9.34 8.94 RBC 4.38 2.16 L Hgb 12.8 8.5 L D 6.3 L* Hct 38.5 25.8 L 18.7 L* MCV 87.9 86.6 MCH 29.2 29.2 MCHC 33.2 33.7 RDW Std Deviation 46.2 47.6 H RDW Coeff of Rhoda 14.2 15.0 H Plt Count 183 142 MPV 10.9 H 10.3 Immature Gran % (Auto) 0.1 Neut % (Auto) 82.8 Lymph % (Auto) 10.2 Clay % (Auto) 6.5 Eos % (Auto) 0.3 Baso % (Auto) 0.1 Neut # (Auto) 7.40 H Lymph # (Auto) 0.91 L Clay # (Auto) 0.58 Eos # (Auto) 0.03 Baso # (Auto) 0.01 Immature Gran # (Auto) 0.01 Basophilic Stippling 1+ PT INR APTT PTT Ratio Fibrinogen COVID-19 Eval Order SARS-CoV-2, RNA, NAAT Blood Type Blood Type Recheck Antibody Screen Crossmatch 05/20/21 05/20/21 05/21/21 23:17 23:19 08:09 WBC 9.57 RBC 2.86 L Hgb 8.3 L Hct 24.2 L MCV 84.6 MCH 29.0 MCHC 34.3 RDW Std Deviation 45.2 RDW Coeff of Rhoda 14.5 Plt Count 123 L MPV 10.0 Immature Gran % (Auto) 0.2 Neut % (Auto) 80.3 Lymph % (Auto) 11.6 Clay % (Auto) 7.0 Eos % (Auto) 0.9 Baso % (Auto) 0.0 Neut # (Auto) 7.68 H Lymph # (Auto) 1.11 L Clay # (Auto) 0.67 H Eos # (Auto) 0.09 Baso # (Auto) 0.00 Immature Gran # (Auto) 0.02 Basophilic Stippling PT 9.9 INR 1.0 APTT 26.2 PTT Ratio 1.0 Fibrinogen 438 H COVID-19 Eval Order SARS-CoV-2, RNA, NAAT Blood Type Blood Type Recheck A Positive Antibody Screen Crossmatch 05/21/21 05/21/21 05/22/21 11:58 18:31 06:05 WBC RBC Hgb 8.9 L 8.9 L 7.3 L Hct 26.4 L 25.9 L 21.4 L MCV MCH MCHC RDW Std Deviation RDW Coeff of Rhoda Plt Count MPV Immature Gran % (Auto) Neut % (Auto) Lymph % (Auto) Clay % (Auto) Eos % (Auto) Baso % (Auto) Neut # (Auto) Lymph # (Auto) Clay # (Auto) Eos # (Auto) Baso # (Auto) Immature Gran # (Auto) Basophilic Stippling PT INR APTT PTT Ratio Fibrinogen COVID-19 Eval Order SARS-CoV-2, RNA, NAAT Blood Type Blood Type Recheck Antibody Screen Crossmatch
[2021-05-22] MEDS: DOCUSATE SODIUM 100 MG CAP PO SCH ×2 (08:39→20:27)
[2021-05-22] MEDS: IBUPROFEN 600 MG TAB PO PRN ×2 (08:39→13:33)
[2021-05-22] MEDS: SIMETHICONE 80 MG CHEW PO SCH ×4 (08:39→20:27)
[2021-05-22] MEDS: PRENATAL VITAMIN 1 TAB PO SCH (08:39)
[2021-05-22] MEDS: FERROUS SULFATE 325 MG TAB PO SCH ×2 (08:39→20:28)
[2021-05-22] MEDS: ESCITALOPRAM OXALATE 20 MG TAB PO SCH (08:40)
[2021-05-22 11:49] LABS: Hematocrit (blood only) 22.5 % (37-47); Hemoglobin 7.6 g/dL (12.0-16.0)
[2021-05-23 06:50] LABS: Eosinophils # (auto) 0.16 K/uL (0-0.5); Eosinophils % (auto) 2.4 %; Hematocrit (blood only) 22.1 % (37-47); Hemoglobin 7.1 g/dL (12.0-16.0); Immature Granulocytes # (auto) 0.03 K/uL (0.00-0.02); Immature Granulocytes % (auto) 0.4 %; Lymphocytes # (auto) 1.11 K/uL (1.2-3.4); Lymphocytes % (auto) 16.5 %; Mean Corpuscular Hemoglobin 28.5 pg (25-34); Mean Corpuscular Hgb Conc 32.1 g/dL (32-36); Mean Corpuscular Volume 88.8 fL (80-100); Mean Platelet Volume 9.5 fL (7.4-10.4); Monocytes # (auto) 0.47 K/uL (0.11-0.59); Neutrophils # (auto) 4.96 K/uL (1.4-6.5); Neutrophils % (auto) 73.7 %; Nucleated RBC # (auto) 0.03 K/uL (0-0); Nucleated RBC % (auto) 0.4 %; Platelet Count 177 K/uL (130-400); RDW Coefficient of Variation 14.8 % (11.5-14.5); RDW Standard Deviation 47.9 fL (36.4-46.3); Red Blood Count 2.49 M/uL (4.2-5.4); White Blood Count 6.73 K/uL (4.8-10.8)
[2021-05-23 07:20] LABS: Polychromasia 1+
[2021-05-23] MEDS ORDERED: SODIUM CHLORIDE 0.9% 250 ML IV PRN ×2 (07:28→07:37)
--- NOTE | 2021-05-23 07:31 | Obstetrical Progress Note ---
Date of Service May 23, 2021 Assessment & Plan Admission and Anticipated Discharge Date Admission Date: May 19, 2021 Subjective Patient is seen and examined. She feels well, no complaints other than being tired. Pain is under control with oral meds. Ambulating without dizziness Voiding without difficulty Tolerating regular diet with out N&V Flatus + BM + multiple times Bleeding is minimal No fever/ chills/ CP/ SOB/ N&V/ Leg pain Breast feeding without problems Vital Signs Temp Pulse Resp BP Pulse Ox 05/22/21 23:30 37 C 86 16 121/77 98 05/22/21 19:13 36.8 C 98 H 16 135/79 98 05/22/21 15:16 36.7 C 80 16 122/70 05/22/21 07:30 36.6 C 90 16 128/80 Lab Results 05/19/21 05/19/21 05/19/21 Range/Units 14:50 14:50 15:47 WBC (4.8-10.8) K/uL RBC (4.2-5.4) M/uL Hgb (12.0-16.0) g/dL Hct (37-47) % MCV (80-100) fL MCH (25-34) pg MCHC (32-36) g/dL RDW Std Deviation (36.4-46.3) fL RDW Coeff of Rhoda (11.5-14.5) % Plt Count (130-400) K/uL MPV (7.4-10.4) fL Immature Gran % (Auto) % Neut % (Auto) % Lymph % (Auto) % Addison % (Auto) % Eos % (Auto) % Baso % (Auto) % Neut # (Auto) (1.4-6.5) K/uL Lymph # (Auto) (1.2-3.4) K/uL Addison # (Auto) (0.11-0.59) K/uL Eos # (Auto) (0-0.5) K/uL Baso # (Auto) (0-0.2) K/uL Immature Gran # (Auto) (0.00-0.02) K/uL Absolute Nucleated RBC (0-0) K/uL Nucleated RBC % (auto) % Polychromasia Basophilic Stippling PT (9.0-12.0) Seconds INR (0.9-1.1) APTT (21.0-31.0) Seconds PTT Ratio Fibrinogen (184-400) mg/dl COVID-19 Eval [facility] SARS-[facility]-2, RNA, NAAT NEGATIVE (NEGATIVE) Blood Type A Positive Blood Type Recheck Antibody Screen NEGATIVE Crossmatch See Detail 05/19/21 05/20/21 05/20/21 Range/Units 15:47 09:21 23:17 WBC 9.34 8.94 (4.8-10.8) K/uL RBC 4.38 2.16 L (4.2-5.4) M/uL Hgb 12.8 8.5 L D 6.3 L* (12.0-16.0) g/dL Hct 38.5 25.8 L 18.7 L* (37-47) % MCV 87.9 86.6 (80-100) fL MCH 29.2 29.2 (25-34) pg MCHC 33.2 33.7 (32-36) g/dL RDW Std Deviation 46.2 47.6 H (36.4-46.3) fL RDW Coeff of Rhoda 14.2 15.0 H (11.5-14.5) % Plt Count 183 142 (130-400) K/uL MPV 10.9 H 10.3 (7.4-10.4) fL Immature Gran % (Auto) 0.1 % Neut % (Auto) 82.8 % Lymph % (Auto) 10.2 % Addison % (Auto) 6.5 % Eos % (Auto) 0.3 % Baso % (Auto) 0.1 % Neut # (Auto) 7.40 H (1.4-6.5) K/uL Lymph # (Auto) 0.91 L (1.2-3.4) K/uL Addison # (Auto) 0.58 (0.11-0.59) K/uL Eos # (Auto) 0.03 (0-0.5) K/uL Baso # (Auto) 0.01 (0-0.2) K/uL Immature Gran # (Auto) 0.01 (0.00-0.02) K/uL Absolute Nucleated RBC (0-0) K/uL Nucleated RBC % (auto) % Polychromasia Basophilic Stippling 1+ PT (9.0-12.0) Seconds INR (0.9-1.1) APTT (21.0-31.0) Seconds PTT Ratio Fibrinogen (184-400) mg/dl COVID-19 Eval Order SARS-CoV-2, RNA, NAAT (NEGATIVE) Blood Type Blood Type Recheck Antibody Screen Crossmatch 05/20/21 05/20/21 05/21/21 Range/Units 23:17 23:19 08:09 WBC 9.57 (4.8-10.8) K/uL RBC 2.86 L (4.2-5.4) M/uL Hgb 8.3 L (12.0-16.0) g/dL Hct 24.2 L (37-47) % MCV 84.6 (80-100) fL MCH 29.0 (25-34) pg MCHC 34.3 (32-36) g/dL RDW Std Deviation 45.2 (36.4-46.3) fL RDW Coeff of Rhoda 14.5 (11.5-14.5) % Plt Count 123 L (130-400) K/uL MPV 10.0 (7.4-10.4) fL Immature Gran % (Auto) 0.2 % Neut % (Auto) 80.3 % Lymph % (Auto) 11.6 % Addison % (Auto) 7.0 % Eos % (Auto) 0.9 % Baso % (Auto) 0.0 % Neut # (Auto) 7.68 H (1.4-6.5) K/uL Lymph # (Auto) 1.11 L (1.2-3.4) K/uL Addison # (Auto) 0.67 H (0.11-0.59) K/uL Eos # (Auto) 0.09 (0-0.5) K/uL Baso # (Auto) 0.00 (0-0.2) K/uL Immature Gran # (Auto) 0.02 (0.00-0.02) K/uL Absolute Nucleated RBC (0-0) K/uL Nucleated RBC % (auto) % Polychromasia Basophilic Stippling PT 9.9 (9.0-12.0) Seconds INR 1.0 (0.9-1.1) APTT 26.2 (21.0-31.0) Seconds PTT Ratio 1.0 Fibrinogen 438 H (184-400) mg/dl COVID-19 Eval Order SARS-CoV-2, RNA, NAAT (NEGATIVE) Blood Type Blood Type Recheck A Positive Antibody Screen Crossmatch 05/21/21 05/21/21 05/22/21 Range/Units 11:58 18:31 06:05 WBC (4.8-10.8) K/uL RBC (4.2-5.4) M/uL Hgb 8.9 L 8.9 L 7.3 L (12.0-16.0) g/dL Hct 26.4 L 25.9 L 21.4 L (37-47) % MCV (80-100) fL MCH (25-34) pg MCHC (32-36) g/dL RDW Std Deviation (36.4-46.3) fL RDW Coeff of Rhoda (11.5-14.5) % Plt Count (130-400) K/uL MPV (7.4-10.4) fL Immature Gran % (Auto) % Neut % (Auto) % Lymph % (Auto) % Addison % (Auto) % Eos % (Auto) % Baso % (Auto) % Neut # (Auto) (1.4-6.5) K/uL Lymph # (Auto) (1.2-3.4) K/uL Addison # (Auto) (0.11-0.59) K/uL Eos # (Auto) (0-0.5) K/uL Baso # (Auto) (0-0.2) K/uL Immature Gran # (Auto) (0.00-0.02) K/uL Absolute Nucleated RBC (0-0) K/uL Nucleated RBC % (auto) % Polychromasia Basophilic Stippling PT (9.0-12.0) Seconds INR (0.9-1.1) APTT (21.0-31.0) Seconds PTT Ratio Fibrinogen (184-400) mg/dl COVID-19 Eval Order SARS-CoV-2, RNA, NAAT (NEGATIVE) Blood Type Blood Type Recheck Antibody Screen Crossmatch 05/22/21 05/23/21 Range/Units 11:42 06:38 WBC 6.73 (4.8-10.8) K/uL RBC 2.49 L (4.2-5.4) M/uL Hgb 7.6 L 7.1 L (12.0-16.0) g/dL Hct 22.5 L 22.1 L (37-47) % MCV 88.8 (80-100) fL MCH 28.5 (25-34) pg MCHC 32.1 (32-36) g/dL RDW Std Deviation 47.9 H (36.4-46.3) fL RDW Coeff of Rhoda 14.8 H (11.5-14.5) % Plt Count 177 (130-400) K/uL MPV 9.5 (7.4-10.4) fL Immature Gran % (Auto) 0.4 % Neut % (Auto) 73.7 % Lymph % (Auto) 16.5 % Addison % (Auto) 7.0 % Eos % (Auto) 2.4 % Baso % (Auto) 0.0 % Neut # (Auto) 4.96 (1.4-6.5) K/uL Lymph # (Auto) 1.11 L (1.2-3.4) K/uL Addison # (Auto) 0.47 (0.11-0.59) K/uL Eos # (Auto) 0.16 (0-0.5) K/uL Baso # (Auto) 0.00 (0-0.2) K/uL Immature Gran # (Auto) 0.03 H (0.00-0.02) K/uL Absolute Nucleated RBC 0.03 H (0-0) K/uL Nucleated RBC % (auto) 0.4 % Polychromasia 1+ Basophilic Stippling PT (9.0-12.0) Seconds INR (0.9-1.1) APTT (21.0-31.0) Seconds PTT Ratio Fibrinogen (184-400) mg/dl COVID-19 Eval Order SARS-CoV-2, RNA, NAAT (NEGATIVE) Blood Type Blood Type Recheck Antibody Screen Crossmatch PE: General: Alert, orientedx3, NAD CVS: S1S2 RRR Lungs; CTAB Abd: soft, NT, ND, BS+, fundus firm, below Umbilicus Incision/ Dressing: Clean, dry, intact Perineum intact, Lochia rubra minimal Ext; NT, 1+/1+ edema AP: 30 yo s/p RC Section, pod# 3 VSS Afebrile doing well Pelvic hematoma, stable clinically, s/p 2 units of PRBCC Hb 7.1, discussed oral iron therapy, dietary intake vs blood transfusion with possible risks, patient desires to feel better quicker and 1 unit of PRBCC Continue to monitor Encourage ambulation, PO intake All questions were answered D/C home this afternoon Results & Data ([facility]) Vital Signs (Past 12 Hours) Vital Signs Temp Pulse Resp BP Pulse Ox 05/22/21 23:30 37 C 86 16 121/77 98
[2021-05-23] MEDS: SIMETHICONE 80 MG CHEW PO SCH (08:54)
[2021-05-23] MEDS: FERROUS SULFATE 325 MG TAB PO SCH (08:54)
[2021-05-23] MEDS: PRENATAL VITAMIN 1 TAB PO SCH (08:54)
[2021-05-23] MEDS: DOCUSATE SODIUM 100 MG CAP PO SCH (08:54)
[2021-05-23] MEDS: oxyCODONE/ACETAMINOPHEN 5mg/325mg TAB PO PRN (08:56)
[2021-05-23] MEDS: IBUPROFEN 600 MG TAB PO PRN (08:56)
[2021-05-23] MEDS: ACETAMINOPHEN 500 MG TAB PO PRN (09:34)
[2021-05-23] MEDS: diphenhydrAMINE Capsule 25 MG CAP PO PRN (09:34)
[2021-05-23] MEDS: ESCITALOPRAM OXALATE 20 MG TAB PO SCH (09:34)
[2021-05-23 15:14] LABS: Hematocrit (blood only) 25.1 % (37-47); Hemoglobin 8.3 g/dL (12.0-16.0)
--- NOTE | 2021-06-20 05:18 | Coding Query ---
ANEMIA To promote full compliance with coding requirements relating to patient care, physician participation is requested in all cases of cigar wrapper uncertainty. Please assist us with the question(s) below: Coding Question(s): The record reflects the following clinical findings: Post - 2 Units Pack Cells given. H/H 05/05 8.5 / 25.8 . If these findings are indicative of anemia, please specify the known or suspected type by placing an "X" within the parenthesis (x). If other, please document type. Examples are: ( ) Acute blood loss anemia (x ) Acute Postoperative blood loss anemia ( ) Acute postoperative anemia due to dilutional fluids ( ) Chronic blood loss anemia ( ) Anemia of chronic disease ( ) Aplastic anemia ( ) Anemia due to renal disease ( ) Anemia in neoplastic disease ( ) Iron deficient anemia ( ) Anemia, unspecified or other ( ) Other: (please specify) ( ) Unable to determine Thank you Kurt ARIAS
--- NOTE | 2021-06-24 15:52 | Discharge Summary (DS) ---
DATE OF ADMISSION: 05/19/2021 DATE OF DISCHARGE: 05/23/2021 HISTORY OF PRESENT ILLNESS: This is a 30-year-old G2, P1, due date was 05/30/2021. The patient was then attempted and was admitted on 05/19/2021. Her labor progressed to full dilation. There wa s failure to descend. Decision was therefore made to perform a repeat section on 05/20/2021 . Details of the procedure is in the surgical note. The patient did well in recovery and was discharged home in stable condition on 05/23/2021. PAST MEDICAL HISTORY: History of anxiety, depression and obesity. PAST SURGICAL HISTORY: History of previous section. SOCIAL HISTORY: The patient is and lives with spouse and a child. ALLERGIES: No known drug allergies. PHYSICAL EXAMINATION: VITAL SIGNS: On 05/23/2021 showed blood pressure of 121/77, pulse of 86, respiration of 18, temperat ure of 36.8. LABORATORY DATA: On 05/23/2021 showed a hemoglobin of 7.1, hematocrit of 22.1. CONDITION ON DISCHARGE: Stable. OPERATIONS: Repeat section after failed attempt. DISCHARGE DIAGNOSES: Postoperative after section. PLAN ON DISCHARGE: The patient was discharged home with instructions regarding activity, diet, and f [facility] appointment. Job ID: [id number]
--- NOTE | 2021-06-27 04:59 | Coding Query ---
CODING QUERY To promote full compliance with coding requirements relating to patient care, provider participation is requested in all cases of [employer] uncertainty. Please assist us with the question(s) below: Coding Question(s): Patient status post Section . Progress notes document pelvic hematoma post . 05/19 progress note mentions 8 cm pelvic hematoma per CT Abdomen/Radiologist read. Please check below the phrase that describes the hematoma. Thanks for your help. Kurt Romero [facility] Physician's Response(s): The pelvic hematoma was not significant, not a complication. __x The pelvic hematoma was a postoperative complication Cannot clinically determine if the pelvic hematoma was a complication Other: please document: Principal Diagnosis: "that condition established after study, to be chiefly responsible for occasioning the admission of the patient to the hospital for care." Co-Existing Principal Diagnosis: "when two or more diagnoses equally meet the criteria for principal diagnosis as determined by the circumstances of admission, diagnostic work up, and/or therapy provided, and the Alphabetic Index, Tabular List, or another coding guideline does not provide sequencing direction, any one of the diagnoses may be sequenced first." "When the physician has documented what appears to be a current diagnosis in the body of the record, but has not included the diagnosis in the final diagnostic statement, the physician should be asked whether the diagnosis should be added." (Source [facility] 2 QTR90. p3-4) JUANA
== END 2021-05-23 16:45 | disposition home or self-care (01) | DRG 787 ==
LOC: OPB 14:46 → 4S1 14:49 → 4S2 05-20 06:21